=== PATIENT | female | born 1985 | race African-American/Black ===

== ENCOUNTER 2016-07-03 11:11 | Emergency (ER) | payer MEDICAID ==
--- NOTE | 2016-07-03 11:31 | ER Document Report ---
ED Medical Screen (RME) - General Chief Complaint: Knee Pain Stated Complaint: BACK PAIN Time seen by provider: 11:29 Mode of Arrival: Ambulatory Information source: Patient Notes: 31 yo female presents to ed for back and knee pain chronic. knee pain for 2 days worse. TRAVEL OUTSIDE OF THE [place] IN LAST 30 DAYS: No - HPI Onset: Other - 2 days knee Onset/Duration: Gradual Quality of pain: Achy Severity: Severe Pain Level: 5 Associated Symptoms: Other - knee pain left off and on for a year Exacerbated by: Sitting Relieved by: Denies Similar symptoms previously: Yes Recently seen / treated by doctor: No - Related Data Smoking: Cigarettes, Less than 1 pack/day Frequency of alcohol use: None Drug Abuse: None Allergies/Adverse Reactions: iodine Allergy (Verified 04/23/16 16:57) latex Allergy (Verified 04/23/16 16:57) Past Medical History Pulmonary Medical History: Reports: Hx Asthma Past Surgical History: Reports: Hx Section - Immunizations Hx Diphtheria, Pertussis, Tetanus Vaccination: No
[2016-07-03] MEDS ORDERED: KETOROLAC TROMETHAMINE 60 MG/2 ML SDV IM ONE (12:09)
--- NOTE | 2016-07-03 12:13 | ER Document Report ---
ED Extremity Problem, Lower - General Chief Complaint: Knee Pain Stated Complaint: BACK PAIN Time seen by provider: 12:10 Mode of Arrival: Ambulatory Notes: This is a 31-year-old female that presents today with left knee pain for the past 6 days. 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 Denies hearing any pops knee is not locking or giving out. Denies nausea vomiting fever or chills. She describes the pain as ache 10 out of 10 constant. Knee pain has gradually gotten worse over the past day. She has a history of low back pain right sided lumbar area. She states that a year ago she fell while at work. TRAVEL OUTSIDE OF THE [place] IN LAST 30 DAYS: No - Related Data Allergies/Adverse Reactions: iodine Allergy (Verified 04/23/16 16:57) latex Allergy (Verified 04/23/16 16:57) Past Medical History - General Information source: Patient - Social History Smoking Status: Current Every Day Smoker Frequency of alcohol use: None Drug Abuse: None Family History: Reviewed & Not Pertinent Patient has suicidal ideation: No Patient has homicidal ideation: No Pulmonary Medical History: Reports: Hx Asthma Past Surgical History: Reports: Hx Section - Immunizations Hx Diphtheria, Pertussis, Tetanus Vaccination: No Review of Systems - Review of Systems Constitutional: denies: Chills, Fever EENT: No symptoms reported Cardiovascular: denies: Chest pain Respiratory: denies: Cough, Hurts to breathe Gastrointestinal: No symptoms reported Genitourinary: No symptoms reported Female Genitourinary: No symptoms reported Musculoskeletal: See HPI Skin: No symptoms reported Hematologic/Lymphatic: No symptoms reported Neurological/Psychological: No symptoms reported Physical Exam - Vital signs Vitals: Temp Pulse Resp BP Pulse Ox 98.0 F 73 20 150/90 H 100 07/03/16 11:25 07/03/16 11:25 07/03/16 11:25 07/03/16 11:25 07/03/16 11:25 - General General appearance: Appears well, Alert - HEENT Head: Normocephalic, Atraumatic Eyes: Normal Conjunctiva: Normal - Respiratory Respiratory status: No respiratory distress. No: Tachypnea Breath sounds: Normal. No: Rales, Rhonchi, Stridor, Wheezing Chest palpation: Normal - Cardiovascular Rhythm: Regular Heart sounds: Normal auscultation - Abdominal Inspection: Normal Distension: No distension Bowel sounds: Normal Tenderness: Nontender - Extremities General upper extremity: Normal inspection, Nontender, Normal strength, Normal temperature General lower extremity: Normal inspection - Patient is able to flex to 90 and fully extend the left knee. Good range of motion of hip both to gravity and resistance. Dorsalis pedis bilaterally +2., Nontender, Normal strength, Normal temperature - Neurological Cognition: Normal. No: Confused - Psychological Associated symptoms: Normal affect, Normal mood - Skin Skin Temperature: Warm Skin Moisture: Dry Skin Color: Normal Course - Re-evaluation Re-evalutation: 07/03/16 13:40 Patient was offered crutches here in the emergency department. She stated that she heart he has a pair at home and would not like it. Patient was given Jarrett wrap bandage and was offered to wrap her left knee here in the emergency department; however she stated that she didn't want to take off her jeans, and instead would wrap it herself at home. - Vital Signs Vital signs: Temp Pulse Resp BP Pulse Ox 97.8 F 59 L 16 130/87 H 99 07/03/16 13:59 07/03/16 13:59 07/03/16 13:59 07/03/16 13:59 07/03/16 13:59 Discharge - Discharge Clinical Impression: Left knee pain Qualifiers: Chronicity: acute Qualified Code(s): M25.562 - Pain in left knee Condition: Good Disposition: HOME, SELF-CARE Additional Instructions: Return to emergency department if symptoms worsen such as joint swelling, increased redness, or drainage,etc. Follow-up with primary care physician as soon as possible. Follow-up with orthopedist as soon as possible. Jarrett Wrap A compression dressing (jarrett wrap) has been placed. This helps hold the area still. It limits swelling and internal bleeding. The wrap should be comfortably snug -- not tight. You should feel a sense of pressure, but not severe pain under the wrap. Unless the physician tells you otherwise, you can adjust the wrap for comfort. If the wrap causes symptoms suggesting it's too tight -- uncomfortable pressure, swelling or discoloration beyond the wrap, numbness, or severe pain - - you must loosen the wrap. If these symptoms don't resolve promptly, return for re-evaluation. Prescriptions: Acetaminophen 500 mg PO BID #10 tablet Referrals: TRACEY MARIE MD [Primary Care Provider] - Follow up as needed [facility] [Provider Group] - Follow up as needed
[2016-07-03 14:05] VITALS: BP 130/87
== END 2016-07-03 14:03 | disposition home or self-care (01) ==
LOC: ER 11:11
DX: M25.562 Pain in left knee (principal); J45.909 Unspecified asthma, uncomplicated; F17.200 Nicotine dependence, unspecified, uncomplicated; Z91.81 History of falling; Z91.040 Latex allergy status
CPT/HCPCS: 99283; 96372; 73562; J1885

== ENCOUNTER 2016-08-27 12:11 | Emergency (ER) | payer MEDICAID ==
[2016-08-27] MEDS ORDERED: IBUPROFEN 600 MG TABLET PO ONE (12:22)
--- NOTE | 2016-08-27 12:22 | ER Document Report ---
ED Medical Screen (RME) - General Stated Complaint: BACK PAIN Mode of Arrival: Ambulatory Information source: Patient Notes: c/o mid-lower back pain, described as throbbing/aching that has been present for the past year but it worsened 2 days ago. 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 She has tried tylenol, ibuprofen which is not providing relief. no nausea, vomiting, diarrhea, dysuria, bowel/bladder incontinence, paresthesias , weakness I have greeted and performed a rapid initial assessment of this patient. A comprehensive ED assessment and evaluation of the patient, analysis of test results and completion of the medical decision making process will be conducted by additional ED providers. TRAVEL OUTSIDE OF THE [place] IN LAST 30 DAYS: No - Related Data Allergies/Adverse Reactions: iodine Allergy (Verified 08/27/16 12:20) latex Allergy (Verified 08/27/16 12:20) Past Medical History Pulmonary Medical History: Reports: Hx Asthma Past Surgical History: Reports: Hx Section - Immunizations Hx Diphtheria, Pertussis, Tetanus Vaccination: No Physical Exam - Vital signs Vitals: Temp Pulse Resp BP Pulse Ox 98.2 F 63 16 142/86 H 99 08/27/16 12:18 08/27/16 12:18 08/27/16 12:18 08/27/16 12:18 08/27/16 12:18 Course - Vital Signs Vital signs: Temp Pulse Resp BP Pulse Ox 98.2 F 63 16 142/86 H 99 08/27/16 12:18 08/27/16 12:18 08/27/16 12:18 08/27/16 12:18 08/27/16 12:18
--- NOTE | 2016-08-27 13:50 | ER Document Report ---
HPI - HPI Patient complains to provider of: exacerbation of chronic back pain Onset: Other Onset/Duration: Gradual - Wednesday Quality of pain: Achy, Throbbing Pain Level: 5 Context: 31-year-old female with episodic low back pain complaining of another episode of central lumbar back pain since Wednesday. 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 No radiculopathy. No saddle anesthesia. No IV drug use. No fever. Associated Symptoms: None Exacerbated by: Movement Relieved by: Denies Similar symptoms previously: Yes Recently seen / treated by doctor: No - ROS ROS below otherwise negative: Yes Systems Reviewed and Negative: Yes All other systems reviewed and negative - CARDIOVASCULAR Cardiovascular: DENIES: Chest pain - REPRODUCTIVE Reproductive: DENIES: : - DERM Skin Color: Normal Past Medical History - General Information source: Patient - Social History Smoking Status: Current Every Day Smoker Chew tobacco use (# tins/day): No Frequency of alcohol use: None Drug Abuse: None Lives with: Family Family History: Reviewed & Not Pertinent Patient has suicidal ideation: No Patient has homicidal ideation: No Pulmonary Medical History: Reports: Hx Asthma Renal/ Medical History: Denies: Hx Peritoneal Dialysis Past Surgical History: Reports: Hx Section - Immunizations Hx Diphtheria, Pertussis, Tetanus Vaccination: No Vertical Provider Document - CONSTITUTIONAL Agree With Documented VS: Yes - INFECTION CONTROL TRAVEL OUTSIDE OF THE [place] IN LAST 30 DAYS: No - HEENT HEENT: Normocephalic - NECK Neck: Supple - RESPIRATORY Respiratory: Breath Sounds Normal, No Respiratory Distress O2 Sat by Pulse Oximetry: 99 - CARDIOVASCULAR Cardiovascular: Regular Rate, Regular Rhythm - GI/ABDOMEN Gastrointestinal: Abdomen Soft, Abdomen Non-Tender, No Organomegaly - BACK Back: Normal Inspection. negative: CVA Tenderness-Right, CVA Tenderness-Left - MUSCULOSKELETAL/EXTREMETIES Musculoskeletal/Extremeties: MAEW, FROM, Tender - lower lumbar paraspinal muscles - NEURO Level of Consciousness: Awake, Alert Motor/Sensory: No Motor Deficit, No Sensory Deficit Deep Tendon Reflexes: 2+ - Bilateral patellar and ankle - DERM Integumentary: Warm, Dry, No Rash. negative: Rash Course - Vital Signs Vital signs: Temp Pulse Resp BP Pulse Ox 98.2 F 63 16 142/86 H 99 08/27/16 12:18 08/27/16 12:18 08/27/16 12:18 08/27/16 12:18 08/27/16 12:18 Discharge - Discharge Clinical Impression: chronic intermittent lumbar back pain Condition: Good Disposition: HOME, SELF-CARE Instructions: Warm Packs ([facility]), Low Back Pain ([facility]), Muscle Relaxers ([facility]), Muscle Strain ([facility]), Anti-Inflammatory Medication ([facility]) Additional Instructions: warm compress see your doctor for follow up to er if worse Prescriptions: Ibuprofen [Motrin 800 mg Tablet] 800 mg PO Q8HP PRN #30 tab PRN Reason: Cyclobenzaprine HCl [Flexeril 10 Mg Tablet] 10 mg PO TIDP PRN #20 tablet PRN Reason: Forms: Return to Work Referrals: TRACEY MARIE MD [Primary Care Provider] - Follow up as needed
[2016-08-27 14:25] VITALS: BP 135/87
== END 2016-08-27 14:20 | disposition home or self-care (01) ==
LOC: ER 12:11
DX: G89.29 Other chronic pain (principal); M54.5 Low back pain; F17.200 Nicotine dependence, unspecified, uncomplicated; J45.909 Unspecified asthma, uncomplicated
CPT/HCPCS: 99283; J3490

== ENCOUNTER → 2016-11-17 | Outpatient (CLI) | payer MEDICAID ==
--- NOTE | 2016-11-17 10:47 | RADIOLOGY REPORT (SQ) ---
EXAM DESCRIPTION: MRI LUMBAR SPINE WITHOUT COMPLETED DATE/TIME: 11/17/2016 9:07 am REASON FOR STUDY: LOW BACK STRAIN S39.012A STRAIN OF MUSCLE, FASCIA AND TENDON OF LOWER BACK, COMPARISON: None. TECHNIQUE: Sagittal and Axial imaging includes T1, T2, STIR and gradient echo sequences. Coronal T2/ HASTE imaging. LIMITATIONS: None. FINDINGS: VISUALIZED UPPER ABDOMEN: Limited evaluation. No acute or suspicious findings suggested. SEGMENTATION: No transitional anatomy. The lowest well-developed disc space is labeled L5-S1. ALIGNMENT: Anatomic. VERTEBRAE: Intact. BONE MARROW: Normal. No marrow replacement or reactive changes. DISC SIGNAL: Normal. No significant abnormal signal or loss of height. POSTERIOR ELEMENTS: Intact. HARDWARE: None in the spine. CORD AND CONUS: Normal in size and signal intensity. Conus at the appropriate level. SOFT TISSUES: No aortic aneurysm seen. No bulky retroperitoneal adenopathy or mass. No paraspinal mas s or fluid. L1-L2: No significant spinal stenosis or exit foraminal stenosis. L2-L3: No significant spinal stenosis or exit foraminal stenosis. L3-L4: No significant spinal stenosis or exit foraminal stenosis. L4-L5: No significant spinal stenosis or exit foraminal stenosis. L5-S1: No significant spinal stenosis or exit foraminal stenosis. LOWER THORACIC: Incompletely imaged. No stenosis seen. SACRUM: Visualized upper sacrum intact. OTHER: No other significant findings. IMPRESSION: NORMAL MRI LUMBAR SPINE. TECHNICAL DOCUMENTATION: JOB ID: [id number] [employer]- All Rights Reserved
== END ==
LOC: RAD 08:21
PROVIDERS: ATTEND Family Medicine
DX: S39.012A Strain of muscle, fascia and tendon of lower back, initial encounter (principal); X58.XXXA Exposure to other specified factors, initial encounter; Y93.9 Activity, unspecified; Y92.9 Unspecified place or not applicable
CPT/HCPCS: 72148

== ENCOUNTER 2016-12-23 10:28 | Emergency (ER) | payer MEDICAID ==
--- NOTE | 2016-12-23 10:54 | ER Document Report ---
ED Cardiac - General Chief Complaint: Chest Pain Stated Complaint: CHEST PAIN Time Seen by Provider: 12/23/16 10:43 Notes: Patient is a 31-year-old female, past medical history chronic back pain, daily smoker, presents with 4 days of intermittent right lower sternal pain that is worse when she extends her arms. She is currently not in any pain and has not taken anything to help. Denies leg swelling, hemoptysis, shortness of breath, estrogen use, recent surgery, abdominal pain, back pain, nausea, vomiting, radiation of pain or family history of early heart problems. TRAVEL OUTSIDE OF THE [place] IN LAST 30 DAYS: No - Related Data Allergies/Adverse Reactions: iodine Allergy (Verified 12/23/16 10:38) latex Allergy (Verified 12/23/16 10:38) Home Medications: Current Home Medications No Home Medications 12/23/16 [History] Past Medical History - General Information source: Patient - Social History Smoking Status: Current Every Day Smoker Frequency of alcohol use: None Drug Abuse: None Family History: Reviewed & Not Pertinent Patient has suicidal ideation: No Patient has homicidal ideation: No Pulmonary Medical History: Reports: Hx Asthma Renal/ Medical History: Denies: Hx Peritoneal Dialysis Past Surgical History: Reports: Hx Section - Immunizations Hx Diphtheria, Pertussis, Tetanus Vaccination: No Review of Systems - Review of Systems Notes: REVIEW OF SYSTEMS: CONSTITUTIONAL: -fevers, -chills EENT: -eye pain, -difficulty swallowing, -nasal congestion CARDIOVASCULAR: +chest pain, -syncope. RESPIRATORY: -cough, -SOB GASTROINTESTINAL: -abdominal pain, - nausea, -vomiting, -diarrhea GENITOURINARY: -dysuria, -hematuria MUSCULOSKELETAL: -back pain, -neck pain SKIN: -rash or skin lesions. HEMATOLOGIC: -easy bruising or bleeding. LYMPHATIC: -swollen, enlarged glands. NEUROLOGICAL: -altered mental status or loss of consciousness, -headache, - neurologic symptoms PSYCHIATRIC: -anxiety, -depression. ALL OTHER SYSTEMS REVIEWED AND NEGATIVE. Physical Exam - Vital signs Vitals: Temp Pulse Resp BP Pulse Ox 98.3 F 77 23 H 142/91 H 100 12/23/16 10:39 12/23/16 10:39 12/23/16 10:39 12/23/16 10:39 12/23/16 10:39 - Notes Notes: PHYSICAL EXAMINATION: GENERAL: Well-appearing, well-nourished and in no acute distress. HEAD: Atraumatic, normocephalic. EYES: Pupils equal round and reactive to light, extraocular movements intact, sclera anicteric, conjunctiva are normal. ENT: nares patent, oropharynx clear without exudates. Moist mucous membranes. NECK: Normal range of motion, supple without lymphadenopathy LUNGS: Breath sounds clear to auscultation bilaterally and equal. No wheezes rales or rhonchi. HEART: Regular rate and rhythm without murmurs. Mild tenderness over lower sternum. ABDOMEN: Soft, nontender, normoactive bowel sounds. No guarding, no rebound. No masses appreciated. EXTREMITIES: Normal range of motion, no pitting or edema. No cyanosis. NEUROLOGICAL: Cranial nerves grossly intact. Normal speech, normal gait. Normal sensory and motor exams. PSYCH: Normal mood, normal affect. SKIN: Warm, Dry, normal turgor, no rashes or lesions noted. Course - Re-evaluation Re-evalutation: Patient's EKG and CXR does not show any concerning abnormalities. Her HEART score is 1 and she is PERC negative. With the reproducible chest wall pain, will treat her with NSAIDs and f/u at her PMD. - Vital Signs Vital signs: Temp Pulse Resp BP Pulse Ox 98.3 F 77 18 142/91 H 100 12/23/16 10:39 12/23/16 10:39 12/23/16 10:40 12/23/16 10:39 12/23/16 10:39 - Diagnostic Test Radiology reviewed: Image reviewed, Reports reviewed Radiology results interpreted by me: CXR: NAD - EKG Interpretation by Me EKG shows normal: Sinus rhythm, [place], Intervals, QRS Complexes, ST-T Waves Rate: Normal When compared to previous EKG there are: No significant change Discharge - Discharge Clinical Impression: Chest pain Qualifiers: Chest pain type: unspecified Qualified Code(s): R07.9 - Chest pain, unspecified Condition: Good Disposition: HOME, SELF-CARE Additional Instructions: CHEST PAIN OF UNCLEAR CAUSE: The exact cause of your chest pain isn't clear. Fortunately, there is no evidence of a dangerous medical condition. Further testing may be required to find the source of the pain. Most often, we find that this pain is coming from the chest wall -- the muscles or rib joints in the chest. But chest pain can come from the lung and lung lining, the esophagus, the heart valves or heart lining, and even the stomach or gallbladder. Rest. Eat lightly until the pain is gone. We may prescribe medicine for pain and inflammation. You should call the physician immediately if the pain radiates to the shoulder, jaw or arms; if you start to run a fever or develop a cough; or if you develop shortness of breath, or other new or alarming symptoms. NORMAL EXAM AND WORKUP: At this time, your examination and workup show no significant abnormality. No significant abnormal physical findings were noted. All laboratory, EKG, and imaging (x-ray, CT scans, ultrasound) studies that were ordered show no significant abnormality. Although your examination and all studies that were ordered showed no significant abnormal finding, there are no examinations and no studies that are 100% accurate. There is always the possibility that some abnormality could exist and not be detected with physical examination or within the limits and capabilities of laboratory and other studies. You should return or follow up as you were instructed on your visit today for further evaluation if your symptoms do not resolve. CHEST WALL PAIN: Your chest pain may be coming from the chest wall. This is often caused by straining the muscles or joints in the chest during physical activity, direct trauma, coughing, or vigorous vomiting. Persons with arthritis are especially prone to this type of pain, due to inflammation of the cartilage joints near the breast bone. Occasionally, no cause can be found. Rest from strenuous physical activity. This kind of chest pain is usually made worse by movement of the chest. Depending on the symptoms, we may prescribe medicine for pain, muscle relaxation, and antiinflammatory effects. If the pain is new, and seems to be due to muscle strain, cold packs can help. Otherwise, apply gentle warmth to the painful area for 15 minutes every hour or two. You should call contact the doctor immediately if things change. Further evaluation is needed if you develop a fever or cough, if the nature of the pain changes, or if you become short of breath. ACID REFLUX DISEASE (GERD): Gastro-Esophageal Reflux Disease (GERD) is caused by stomach acid refluxing back up into the esophagus. The valve at the end of the esophagus may be weak. This is common in persons with a hiatal hernia. GERD symptoms can include indigestion, chest pain, heartburn, or food "sticking." Certain foods, alcohol, and aspirin can make GERD worse. Treatment depends on the severity. Usually, antacids or acid-suppressing medicines are used. When the esophagus is acutely inflamed, the physician will often prescribe membrane-protective drugs such as Carafate. Some patients benefit from medication such as Reglan that tightens the valve at the top of the stomach. Avoid those foods that bring on your symptoms. For many people, these foods are coffee, chocolate, onions, garlic, and carbonated drinks. Don't use alcohol, aspirin, caffeine, or tobacco. Don't eat late at night -- within 4 hours of bedtime. Don't over-eat. If necessary, elevate the head of your bed about 4 inches so that stomach acid will not roll up into your esophagus. Call the doctor if you develop severe chest pain, inability to swallow fluids, fever, or worsening symptoms. FOLLOW-UP CARE: If you have been referred to a physician for follow-up care, call the physician s office for an appointment as you were instructed or within the next two days. If you experience worsening or a significant change in your symptoms, notify the physician immediately or return to the Emergency Department at any time for re-evaluation. Forms: Smoking Cessation Education, Elevated Blood Pressure Referrals: RICARDO ALAN MD [ACTIVE STAFF] - Follow up as needed
--- NOTE | 2016-12-23 11:05 | RADIOLOGY REPORT (SQ) ---
EXAM DESCRIPTION: CHEST PA/LAT COMPLETED DATE/TIME: 12/23/2016 10:58 am REASON FOR STUDY: chest pain COMPARISON: 05/23/2014 EXAM PARAMETERS: NUMBER OF VIEWS: two views TECHNIQUE: Digital Frontal and Lateral radiographic views of the chest acquired. RADIATION DOSE: NA LIMITATIONS: none FINDINGS: LUNGS AND PLEURA: No opacities, masses or pneumothorax. No pleural effusion. MEDIASTINUM AND HILAR STRUCTURES: No masses or contour abnormalities. HEART AND VASCULAR STRUCTURES: Heart normal size. No evidence for failure. BONES: No acute findings. HARDWARE: None in the chest. OTHER: No other significant finding. IMPRESSION: NO SIGNIFICANT RADIOGRAPHIC FINDING IN THE CHEST. TECHNICAL DOCUMENTATION: JOB ID: [id number] [employer]- All Rights Reserved
[2016-12-23 11:31] VITALS: BP 131/75
--- NOTE | 2016-12-23 21:22 | EKG REPORT ---
SEVERITY:- OTHERWISE NORMAL ECG - SINUS ARRHYTHMIA, RATE 64-87 : Confirmed by: Suzy Xie 23-Dec-2016 21:21:53
== END 2016-12-23 11:35 | disposition home or self-care (01) ==
LOC: ER 10:28
DX: R07.9 Chest pain, unspecified (principal); M54.9 Dorsalgia, unspecified; G89.29 Other chronic pain; F17.200 Nicotine dependence, unspecified, uncomplicated
CPT/HCPCS: 71020; 93005; 93010; 99285

== ENCOUNTER 2017-07-05 15:25 | Emergency (ER) | payer MEDICAID ==
[2017-07-05 15:31] VITALS: BP 154/81
[2017-07-05] MEDS ORDERED: KETOROLAC TROMETHAMINE 60 MG/2 ML SDV IM ONE (17:26)
[2017-07-05] MEDS ORDERED: DEXAMETHASONE SOD PHOS INJ 10 MG/1 ML VIAL IM ONE (17:26)
--- NOTE | 2017-07-05 18:09 | RADIOLOGY REPORT (SQ) ---
EXAM DESCRIPTION: L SPINE WHOLE COMPLETED DATE/TIME: 07/05/2017 5:56 pm REASON FOR STUDY: low back pain radiating down right leg COMPARISON: 11/14/2015. NUMBER OF VIEWS: Five views including obliques. TECHNIQUE: AP, lateral, oblique, and sacral radiographic images acquired of the lumbar spine. LIMITATIONS: None. FINDINGS: MINERALIZATION: Normal. SEGMENTATION: Normal. No transitional anatomy. ALIGNMENT: Normal. VERTEBRAE: Maintained height. No fracture or worrisome bone lesion. DISCS: Preserved height. No significant osteophytes or end plate irregularity. POSTERIOR ELEMENTS: Pedicles and facets are intact. No pars defect or posterior arch defects. HARDWARE: None in the spine. PARASPINAL SOFT TISSUES: Normal. PELVIS: Intact as visualized. No fractures or worrisome bone lesions. SI joints intact. OTHER: No other significant finding. IMPRESSION: NORMAL 5 VIEW LUMBAR SPINE. TECHNICAL DOCUMENTATION: JOB ID: [id number] [employer]- All Rights Reserved
--- NOTE | 2017-07-05 18:36 | ER Document Report ---
ED Neck/Back Problem - General Chief Complaint: Back Pain Stated Complaint: BACK PAIN Time Seen by Provider: 07/05/17 16:39 Mode of Arrival: Ambulatory Information source: Patient Notes: 32-year-old female presents to ED for complaint of back pain. She states she has a history of chronic back pain for about 2 years. She states the pain increased on Wednesday and now is radiating down her right leg. States it is never radiated down this far down her leg before. TRAVEL OUTSIDE OF THE [place] IN LAST 30 DAYS: No - HPI Patient complains to provider of: Lower back Onset: Other - Chronic with new radiation down her leg Onset: Chronic Timing: Still present, Worse Quality of pain: Sharp, Throbbing Severity: Severe Pain Level: 5 Context: Other Recent injury: No Associated symptoms: Like prior neck/back pain, Radiation to leg, Lower back pain. denies: Constipation, Fever, Incontinence, Motor loss, Numbness/tingling , Radiation to arm, Radiation to chest, Sensory loss, Sweaty, Unable to urinate , Upper back pain Exacerbated by: Movement of trunk, Sitting position Relieved by: Nothing Similar symptoms previously: Yes Recently seen / treated by doctor: No - Related Data Allergies/Adverse Reactions: iodine Allergy (Verified 07/05/17 15:27) latex Allergy (Verified 07/05/17 15:27) Past Medical History - Social History Smoking Status: Current Every Day Smoker Cigarette use (# per day): Yes - Half pack a day Chew tobacco use (# tins/day): No Smoking Education Provided: Yes - 4 minutes Frequency of alcohol use: Occasional Drug Abuse: None Occupation: None Lives with: Family Family History: Arthritis, CAD, COPD, CVA, Hyperlipidemia, Hypertension, Malignancy. denies: Thyroid Disfunction Patient has suicidal ideation: No Patient has homicidal ideation: No - Past Medical History Cardiac Medical History: Reports: None Pulmonary Medical History: Reports: Hx Asthma EENT Medical History: Reports: None Neurological Medical History: Reports: None Endocrine Medical History: Reports: None Renal/ Medical History: Reports: None Malignancy Medical History: Reports: None GI Medical History: Reports: None Musculoskeltal Medical History: Reports Hx Arthritis, Reports Hx Musculoskeletal Deformity Skin Medical History: Reports None Psychiatric Medical History: Reports: None Traumatic Medical History: Reports: None Infectious Medical History: Reports: None Past Surgical History: Reports: Hx Tubal Ligation - Immunizations Hx Diphtheria, Pertussis, Tetanus Vaccination: No Review of Systems - Review of Systems Constitutional: No symptoms reported EENT: No symptoms reported Cardiovascular: No symptoms reported Respiratory: No symptoms reported Gastrointestinal: No symptoms reported Genitourinary: No symptoms reported Female Genitourinary: No symptoms reported Musculoskeletal: Back pain, Other - Patient denies any loss of control of bowel or bladder, loss of control of lower extremities, any loss of sensation to the lower extremities, or any saddle anesthesia. Patient does not have any signs or symptoms of cauda equina. Skin: No symptoms reported Hematologic/Lymphatic: No symptoms reported Neurological/Psychological: No symptoms reported -: Yes All other systems reviewed and negative Physical Exam - Vital signs Vitals: Temp Pulse Resp BP Pulse Ox 98.6 F 88 18 154/81 H 100 07/05/17 15:30 07/05/17 15:30 07/05/17 15:30 07/05/17 15:30 07/05/17 15:30 Interpretation: Normal - General General appearance: Appears well, Alert - HEENT Head: Normocephalic, Atraumatic Eyes: Normal Pupils: PERRL - Respiratory Respiratory status: No respiratory distress Chest status: Nontender Breath sounds: Normal Chest palpation: Normal - Cardiovascular Rhythm: Regular Heart sounds: Normal auscultation Murmur: No - Abdominal Inspection: Normal Distension: No distension Bowel sounds: Normal Tenderness: Nontender Organomegaly: No organomegaly - Back Back: Normal, Tender, Vertebra tenderness. No: Deformity/step-off, CVA tenderness, Scars, Scoliosis, Wounds - Extremities General upper extremity: Normal inspection, Nontender, Normal color, Normal ROM , Normal temperature General lower extremity: Normal inspection, Nontender, Normal color, Normal ROM , Normal temperature, Normal weight bearing. No: Arnoldo's sign - Neurological Neuro grossly intact: Yes Cognition: Normal Orientation: AAOx4 [place] Coma Scale Eye Opening: Spontaneous [place] Coma Scale Verbal: Oriented [place] Coma Scale Motor: Obeys Commands [place] Coma Scale Total: 15 Speech: Normal Motor strength normal: LUE, RUE, LLE, RLE Sensory: Normal - Psychological Associated symptoms: Normal affect, Normal mood - Skin Skin Temperature: Warm Skin Moisture: Dry Skin Color: Normal Course - Re-evaluation Re-evalutation: 07/05/17 20:26 Patient is able to walk with a steady even gait. She does complain of pain when getting up and down or bending her legs. Patient does not have any signs or symptoms of cauda equina as noted in her assessment. X-rays are negative for any acute changes. Will discharge patient home. Patient was treated with Toradol and Decadron. Patient was instructed to follow-up with primary doctor and with back specialist. - Vital Signs Vital signs: Temp Pulse Resp BP Pulse Ox 98.6 F 88 18 154/81 H 100 07/05/17 15:30 07/05/17 15:30 07/05/17 15:30 07/05/17 15:30 07/05/17 15:30 Discharge - Discharge Clinical Impression: Low back pain Qualifiers: Chronicity: chronic Back pain laterality: bilateral Sciatica presence: with sciatica Sciatica laterality: sciatica of right side Qualified Code(s): M54.41 - Lumbago with sciatica, right side HTN (hypertension) Qualifiers: Hypertension type: unspecified Qualified Code(s): I10 - Essential (primary) hypertension Condition: Stable Disposition: HOME, SELF-CARE Instructions: Family Physicians / Practices Additional Instructions: LOW BACK PAIN: Three out of every four people will have an episode of disabling back pain during their lifetime. Most commonly the pain is due to straining of the muscles and ligaments in the low back. Usual treatment includes: (1) Rest on a firm surface. Avoid lying on your stomach. (2) Ice pack the painful area. After a few days, gentle heat may be used intermittently to relax the area, or ice packs can be continued. (3) Medication may be needed -- muscle relaxers and antiinflammatory medicines are commonly used. (4) As the back improves, exercises are prescribed to strengthen the back and abdominal muscles. Your doctor will advise you on the proper care for your back at each stage in your recovery. You may be better in a few days -- or healing may take several weeks. If new symptoms of a "herniated disc" (radiation of pain, numbness, or tingling down the back of the leg or weakness in the leg) occur, you should be re-examined. Further testing may be necessary. Chronic Pain Control Stress, inactivity, and depression make pain more severe regardless of the cause of the pain. Stress and poor physical condition can cause pain such as headaches and backache. Relaxation: Rest in a quiet place with your eyes closed for 20 minutes twice daily. Concentrate on a pleasant image, or simply "feel" your breathing. Clear your mind. Stress management: Deal with your "stressors." Either take action, or eliminate the stressor from your life. Don't let things hang over you. Accept those things you can't change. Nutrition: Eat small, balanced meals -- don't skip, don't overeat. Meals should be high-carbohydrate, low-sugar, low-fat. Exercise: Exercise helps painful conditions and eases stress. Get 30 minutes of moderate exercise, five days a week. Do an activity that does not flare your pain. Precautions: Pain which continues to disrupt daily activities, or which changes in nature, requires a medical evaluation. Pain Clinic referral is available. We do not manage chronic pain in the Emergency Department. We will try to appropriately help you through an acute flare of your chronic painful condition , but for on-going chronic pain that does not improve, you will need to see your private doctor or mobile paint specialist. We do not provide repeated medication management of chronic painful conditions. If you wish, we can provide the name of local pain management physicians. Stretching Exercises for the Back The physician has recommended that you begin stretching exercises for your back. These are often used even while the back is painful. However, you should notify the physician if the activities seem to increase your pain. PELVIC TILT: Lie flat on your back with knees bent. Tighten your stomach and buttock muscles so it flattens your lower back against the floor. Hold 10 seconds. Repeat 10 times, twice daily. KNEE RAISE: Lying on the back with knees bent, raise one knee to your chest, then the other. Hold both knees against the chest 10 seconds, then lower one knee at a time. Repeat 10 times, twice daily. PARTIAL TRUNK RAISE: Lie face down, arms at your sides. Keeping your waist on the floor, use your arms raise your chest up. Support yourself on your elbows for 30 seconds. Repeat twice daily, increasing the time to two minutes as you recover. STEROID MEDICATION: You have been given an injection of medicine of the cortisone/steroid class. This medication is used to control inflammation or allergy. It is often continued as a pill for a short period of time, until the acute process subsides. There are usually no side effects from short-term use of cortisone-like medications. Some persons feel an increased sense of well-being and are not sleepy at bedtime. Long-term use of cortisone medications is best avoided, unless required for a severe condition. If your condition does not remit, or relapses after the course of corticosteroid medication, you should consult your physician. Toradol Injection You have been given an injection of ketorolac tromethamine (Toradol). This is an excellent, safe drug for pain control. It also has potent antiinflammatory action. You should have significant pain relief within about one hour. Toradol is not addicting and is non-sedating. It does not interfere with driving or work. Call or return if you develop itching, hives, shortness of breath, or rash. MUSCLE RELAXERS: Muscle relaxing medications are usually prescribed for acute muscle spasm or injury to the neck and back. They are often combined with antiinflammatory pain medication for increased relief. You may stop the muscle relaxer when the pain and stiffness have improved. Start the medication again if spasms recur. Muscle relaxers may cause drowsiness, especially with the first dose. Do not operate machinery or drive while under the effects of the medication. Most muscle relaxers last up to 24 hours. Do not combine the medication with alcohol. ICE PACKS: Apply ice packs frequently against the painful area. Many different schedules are recommended, such as "20 minutes on, 20 minutes off" or "one hour ice, two hours rest." If you need to work, you may need to go longer between ice treatments. You should plan to have the area ice packed AT LEAST one fourth of the time. The ice should be applied over the wrap, tape, or splint, or over a layer of cloth -- not directly against the skin. Some ice bags have a built-in cloth and can be put directly on the skin. WARM PACKS: After approximately two days, apply gentle heat (such as a heating pad or hot water bottle) for about 20 to 30 minutes about every two hours -- at least four times daily. Warmth and elevation will help you make a more rapid recovery , and will ease the pain considerably. Do not use HOT heat, and never apply heat for longer than 30 minutes. The continuous heat can invisibly damage skin and muscles -- even when no burn is seen on the surface. Damaged muscles can make you MORE sore. FOLLOW-UP CARE: If you have been referred to a physician for follow-up care, call the physician s office for an appointment as you were instructed or within the next two days. If you experience worsening or a significant change in your symptoms, notify the physician immediately or return to the Emergency Department at any time for re-evaluation. Prescriptions: Ibuprofen 600 mg PO Q8HP PRN #14 tablet PRN Reason: Cyclobenzaprine HCl [Flexeril 10 mg Tablet] 10 mg PO TIDP PRN #15 tab PRN Reason: Lidocaine [Lidoderm 5% (700 mg) Transdermal Patch] 1 patch TP DAILY #20 adh..patch Forms: Elevated Blood Pressure, Smoking Cessation Education Referrals: LIZZY MEDRANO MD [ASSOCIATE] - Follow up as needed
== END 2017-07-05 19:21 | disposition home or self-care (01) ==
LOC: ER 15:25
DX: M54.41 Lumbago with sciatica, right side (principal); I10 Essential (primary) hypertension; F17.210 Nicotine dependence, cigarettes, uncomplicated; Z98.51 Tubal ligation status; Z91.040 Latex allergy status
CPT/HCPCS: 99406; 99283; 96372; 72110; J1885; J1100

== ENCOUNTER 2019-03-13 18:52 | Observation (INO) | payer MEDICAID ==
[2019-03-13] MEDS ORDERED: ASPIRIN 81 MG TABLET, CHEWABLE PO ONE (19:47)
--- NOTE | 2019-03-13 19:51 | ER Document Report ---
ED Medical Screen (RME) - General Chief Complaint: General Weakness Stated Complaint: WEAKNESS/COUGHING Time Seen by Provider: 03/13/19 19:42 Notes: Patient is an otherwise healthy 34-year-old female presenting with multiple symptoms today. Patient reports intermittent chest pain over the last 3 days with cough, congestion and generalized fatigue. She states she just does not feel herself. She denies any radiation of the pain. Exam: Lung sounds clear and equal bilaterally. Heart sounds S1-S2 no noted with no ectopy, normal rate, normal rhythm. Patient has a new left bundle branch block on her EKG in comparison with previous EKG from 2 years ago. I have greeted and performed a rapid initial assessment of this patient. A comprehensive ED assessment and evaluation of the patient, analysis of test results and completion of the medical decision making process will be conducted by additional ED providers. I have specifically instructed the patient or family members with the patient to immediately return to any nursing staff should anything change in the patient's condition or with their chief complaint. This medical record was dictated with voice recognizing software. There may be grammatical, syntax errors that are unintended. TRAVEL OUTSIDE OF THE [place] IN LAST 30 DAYS: No - Related Data Allergies/Adverse Reactions: iodine Allergy (Verified 07/05/17 15:27) latex Allergy (Verified 07/05/17 15:27) Past Medical History - Social History Chew tobacco use (# tins/day): No Frequency of alcohol use: Occasional Drug Abuse: Marijuana Pulmonary Medical History: Reports: Hx Asthma Renal/ Medical History: Denies: Hx Peritoneal Dialysis Musculoskeltal Medical History: Reports Hx Arthritis, Reports Hx Musculoskeletal Deformity Past Surgical History: Reports: Hx Section, Hx Tubal Ligation - Immunizations Hx Diphtheria, Pertussis, Tetanus Vaccination: No Physical Exam - Vital signs Vitals: Temp Pulse Resp BP Pulse Ox 99.5 F 106 H 18 142/81 H 100 03/13/19 19:07 03/13/19 19:07 03/13/19 19:07 03/13/19 19:07 03/13/19 19:07 Course - Vital Signs Vital signs: Temp Pulse Resp BP Pulse Ox 99.5 F 106 H 18 142/81 H 100 03/13/19 19:07 03/13/19 19:07 03/13/19 19:07 03/13/19 19:07 03/13/19 19:07
[2019-03-13] MEDS ORDERED: NORMAL SALINE 1000 ML 1,000 ML IV ONE (20:12)
[2019-03-13 20:27] LABS: ABSOLUTE EOSINOPHILS # (AUTO) 0.2 10^3/uL (0.0-0.6); ABSOLUTE LYMPHOCYTES (AUTO) 1.7 10^3/uL (0.5-4.7); ABSOLUTE MONOCYTES (AUTO) 1.2 10^3/uL (0.1-1.4); ABSOLUTE NEUT (AUTO) 12.5 10^3/uL (1.7-8.2); BASOPHILS % (AUTO) 0.3 % (0-2); EOSINOPHILS % (AUTO) 1.1 % (0-6); HEMATOCRIT 37.4 % (36.0-47.0); HEMOGLOBIN 12.4 g/dL (12.0-15.5); MEAN CORPUSCULAR HEMOGLOBIN 29.2 pg (27.0-33.4); MEAN CORPUSCULAR HGB CONC 33.3 g/dL (32.0-36.0); MEAN CORPUSCULAR VOLUME 88 fl (80-97); MONOCYTES % (AUTO) 7.4 % (3-13); PLATELET COUNT 332 10^3/uL (150-450); RED BLOOD COUNT 4.26 10^6/uL (3.72-5.28); RED CELL DISTRIBUTION WIDTH 13.8 % (11.5-14.0); SEGMENTED NEUTROPHILS % (AUTO) 80.2 % (42-78); TOTAL CELLS COUNTED % (AUTO) 100 %; WHITE BLOOD COUNT 15.6 10^3/uL (4.0-10.5)
[2019-03-13 20:41] LABS: INTERNATIONAL RATION (INR) 1.08; PARTIAL THROMBOPLASTIN TIME 30.8 SEC (23.5-35.8); PROTHROMBIN TIME 14.1 SEC (11.4-15.4)
--- NOTE | 2019-03-13 21:00 | RADIOLOGY REPORT (SQ) ---
XR CHEST 1 VIEW CLINICAL STATEMENT: chest pain COMPARISON: 12/23/2016 FINDINGS: Cardiomediastinal silhouette is within normal limits. Right lower lobe patchy airspace disease consistent with pneumonia. No pneumothorax. No significant pleural effusions. IMPRESSION: Patchy right lower lobe pneumonia.
[2019-03-13 21:12] LABS: CREATINE KINASE MB < 0.22 ng/mL (<4.55); TROPONIN I < 0.012 ng/mL
[2019-03-13 21:12] LABS: VENOUS BLOOD BASE EXCESS -0.4 mmol/L; VENOUS BLOOD HCO3 25.1 mmol/L (20-32); VENOUS BLOOD PCO2 44.2 mmHg (35-63); VENOUS BLOOD PH 7.37 (7.30-7.42)
[2019-03-13 22:28] LABS: APPEARANCE,URINE CLEAR; BILIRUBIN,URINE NEGATIVE (NEGATIVE); COLOR,URINE YELLOW; GLUCOSE, URINE NEGATIVE (NEGATIVE); KETONES,URINE NEGATIVE (NEGATIVE); PROTEIN,URINE NEGATIVE (NEGATIVE); URINE SPECIFIC GRAVITY 1.017
[2019-03-13 22:29] LABS: LEUKOCYTE ESTERASE,URINE TRACE (NEGATIVE); NITRITE,URINE NEGATIVE (NEGATIVE)
[2019-03-13 22:32] LABS: ALKALINE PHOSPHATASE 63 U/L (38-126); ANION GAP 8 (5-19); ASPARTATE AMINO TRANSFERASE 14 U/L (14-36); BILIRUBIN,DIRECT 0.1 mg/dL (0.0-0.4); BILIRUBIN,TOTAL 0.2 mg/dL (0.2-1.3); BLOOD UREA NITROGEN 10 mg/dL (7-20); CALCIUM 8.6 mg/dL (8.4-10.2); CARBON DIOXIDE 24 mmol/L (22-30); CHLORIDE 105 mmol/L (98-107); CREATINE KINASE 59 U/L (30-135); GLUCOSE 89 mg/dL (75-110); POTASSIUM 4.1 mmol/L (3.6-5.0); TOTAL PROTEIN 6.9 g/dL (6.3-8.2)
[2019-03-13] MEDS ORDERED: CEFTRIAXONE 2 GM/D5W RTU 2 GM/50 ML RTUPB IV ONE (23:32)
[2019-03-13] MEDS ORDERED: AZITHROMYCIN 250 MG TABLET PO ONE (23:32)
--- NOTE | 2019-03-14 00:27 | RADIOLOGY REPORT (SQ) ---
EXAM DESCRIPTION: CT CHEST ANGIOGRAPHY WITHOUT THEN WITH IV CONTRAST COMPLETED DATE/TME: 03/13/2019 23:31 CLINICAL HISTORY: 34 years, Female, cough/sob COMPARISON: None. TECHNIQUE: Axial images through the chest were performed after the administration of intravenous contrast using a pulmonary embolus protocol. MIPS were performed. This exam was performed according to our departmental dose-optimization program which includes use of Automated Exposure Control, adjustment of the mA and/or kV according to patient size and/or use of iterative reconstruction technique. FINDINGS: No pulmonary embolus is identified. Normal caliber aorta without dissection. No pericardial effusion. No pleural effusion. Dense consolidation in the right lower lobe. The lungs are otherwise clear. No pneumothorax. Patent central airway. Soft tissues are unremarkable. No acute osseous findings. No acute abnormality within the visualized upper abdomen. IMPRESSION: No pulmonary embolus. Right lower lobe pneumonia
[2019-03-14] MEDS ORDERED: IPRATROPIUM/ALBUTEROL 0.5-2.5 MG/3 ML AMPUL NEB PRN (00:42)
[2019-03-14] MEDS ORDERED: ACETAMINOPHEN 325 MG TABLET PO PRN (00:42)
[2019-03-14] MEDS ORDERED: NORMAL SALINE 1000 ML 1,000 ML IV ONE (00:44)
--- NOTE | 2019-03-14 00:45 | ER Document Report ---
ED General - General Chief Complaint: General Weakness Stated Complaint: WEAKNESS/COUGHING Time Seen by Provider: 03/13/19 19:42 Mode of Arrival: Ambulatory Information source: Patient TRAVEL OUTSIDE OF THE [place] IN LAST 30 DAYS: No - HPI Notes: Patient presents complaining of fever weakness malaise and shortness of breath. She also states she has a chronic dry cough. She states all the symptoms have been getting worse over the last week. She also states she has been having some intermittent chest pain. She states the chest pain was the worst about 1 week ago. She states currently she has no chest pain. She states that the symptoms are worse when she exerts herself and better with rest. There is no significant radiation of the symptoms. The symptoms have been moderate to severe in intensity. She denies any rashes. No previous history of similar symptoms. She denies any chronic medical problems. - Related Data Allergies/Adverse Reactions: latex Allergy (Verified 07/05/17 15:27) shellfish derived Allergy (Verified 03/13/19 23:52) Past Medical History - General Information source: Patient - Social History Smoking Status: Current Every Day Smoker Chew tobacco use (# tins/day): No Frequency of alcohol use: Occasional Drug Abuse: Marijuana Family History: Arthritis, CAD, COPD, CVA, Hyperlipidemia, Hypertension, Malignancy. denies: Thyroid Disfunction Patient has suicidal ideation: No Patient has homicidal ideation: No Pulmonary Medical History: Reports: Hx Asthma Renal/ Medical History: Denies: Hx Peritoneal Dialysis Musculoskeletal Medical History: Reports Hx Arthritis, Reports Hx Musculoskeletal Deformity Past Surgical History: Reports: Hx Section, Hx Tubal Ligation - Immunizations Hx Diphtheria, Pertussis, Tetanus Vaccination: No Review of Systems - Review of Systems Constitutional: Chills, Fever, Malaise, Weakness Cardiovascular: Chest pain, Palpitations Respiratory: Cough, Short of breath Gastrointestinal: denies: Nausea, Constipation -: Yes All other systems reviewed and negative Physical Exam - Vital signs Vitals: Temp Pulse Resp BP Pulse Ox 99.5 F 106 H 18 142/81 H 100 03/13/19 19:07 03/13/19 19:07 03/13/19 19:07 03/13/19 19:07 03/13/19 19:07 Interpretation: Hypertensive, Tachycardic, Febrile - General General appearance: Alert In distress: None - HEENT Head: Normocephalic, Atraumatic Eyes: Normal Pupils: PERRL - Respiratory Respiratory status: No respiratory distress Chest status: Nontender Breath sounds: Rhonchi Chest palpation: Normal - Cardiovascular Rhythm: Tachycardia Heart sounds: Normal auscultation Murmur: No - Abdominal Inspection: Normal Distension: No distension Bowel sounds: Normal Tenderness: Nontender Organomegaly: No organomegaly - Back Back: Normal, Nontender - Extremities General upper extremity: Normal inspection, Nontender, Normal color, Normal ROM, Normal temperature General lower extremity: Normal inspection, Nontender, Normal color, Normal ROM, Normal temperature, Normal weight bearing. No: Arnoldo's sign - Neurological Neuro grossly intact: Yes Cognition: Normal Orientation: AAOx4 Stan Coma Scale Eye Opening: Spontaneous Stan Coma Scale Verbal: Oriented [place] Coma Scale Motor: Obeys Commands [place] Coma Scale Total: 15 Speech: Normal Motor strength normal: LUE, RUE, LLE, RLE Sensory: Normal - Psychological Associated symptoms: Normal affect, Normal mood - Skin Skin Temperature: Warm Skin Moisture: Dry Skin Color: Normal Course - Re-evaluation Re-evalutation: 03/14/19 00:44 Patient reassessed just now. She is no longer tachycardic. Saturations are n ormal. She is not tachypneic. Work-up is remarkable for a right lower lobe pneumonia. Patient does also have an apparent new left bundle branch block. 2 troponins are negative. Patient was discussed with the hospitalist patient be accepted for admission on telemetry. - Vital Signs Vital signs: Temp Pulse Resp BP Pulse Ox 100.4 F 106 H 21 H 134/76 H 100 03/13/19 20:23 03/13/19 19:07 03/13/19 23:00 03/13/19 22:48 03/13/19 23:00 - Laboratory Result Diagrams: 03/13/19 20:15 03/13/19 22:00 Laboratory results interpreted by me: 03/13/19 03/13/19 20:15 22:08 WBC 15.6 H Lymph % (Auto) 11.0 L Absolute Neuts (auto) 12.5 H Seg Neutrophils % 80.2 H Urine Urobilinogen 2.0 H Ur Leukocyte Esterase TRACE H 03/14/19 00:45 Laboratory 03/13/19 03/13/19 03/13/19 20:09 20:15 20:15 WBC 15.6 H RBC 4.26 Hgb 12.4 Hct 37.4 MCV 88 MCH 29.2 MCHC 33.3 RDW 13.8 Plt Count 332 Lymph % (Auto) 11.0 L [place] % (Auto) 7.4 Eos % (Auto) 1.1 Baso % (Auto) 0.3 Absolute Neuts (auto) 12.5 H Absolute Lymphs (auto) 1.7 Absolute Monos (auto) 1.2 Absolute Eos (auto) 0.2 Absolute Basos (auto) 0.0 Seg Neutrophils % 80.2 H PT INR APTT VBG pH VBG pCO2 VBG HCO3 VBG Base Excess Sodium Cancelled Potassium Cancelled Chloride Cancelled Carbon Dioxide Cancelled Anion Gap Cancelled BUN Cancelled Creatinine Cancelled Est GFR ( Amer) Cancelled Est GFR (Non-Af Amer) Cancelled Est GFR (MDRD) Non-Af Cancelled Glucose Cancelled POC Glucose 87 Lactic Acid Calcium Cancelled Total Bilirubin Cancelled Direct Bilirubin Cancelled Neonat Total Bilirubin Cancelled Neonat Direct Bilirubin Cancelled Neonat Indirect Bili Cancelled AST Cancelled ALT Cancelled Alkaline Phosphatase Cancelled Creatine Kinase Cancelled CK-MB (CK-2) Troponin I NT-Pro-B Natriuret Pep Total Protein Cancelled Albumin Cancelled EGFR Cancelled Serum HCG, Qual Urine Color Urine Appearance Urine pH Ur Specific [place] Urine Protein Urine Glucose (UA) Urine Ketones Urine Blood Urine Nitrite Urine Bilirubin Urine Urobilinogen Ur Leukocyte Esterase Urine WBC (Auto) Urine RBC (Auto) Squamous Epi Cells Auto Urine Mucus (Auto) Urine Ascorbic Acid 03/13/19 03/13/19 03/13/19 20:15 20:15 20:15 WBC RBC Hgb Hct MCV MCH MCHC RDW Plt Count Lymph % (Auto) [place] % (Auto) Eos % (Auto) Baso % (Auto) Absolute Neuts (auto) Absolute Lymphs (auto) Absolute Monos (auto) Absolute Eos (auto) Absolute Basos (auto) Seg Neutrophils % PT 14.1 INR 1.08 APTT 30.8 VBG pH VBG pCO2 VBG HCO3 VBG Base Excess Sodium Potassium Chloride Carbon Dioxide Anion Gap BUN Creatinine Est GFR ( Amer) Est GFR (Non-Af Amer) Est GFR (MDRD) Non-Af Glucose POC Glucose Lactic Acid Calcium Total Bilirubin Direct Bilirubin Neonat Total Bilirubin Neonat Direct Bilirubin Neonat Indirect Bili AST ALT Alkaline Phosphatase Creatine Kinase CK-MB (CK-2) < 0.22 Troponin I < 0.012 NT-Pro-B Natriuret Pep Total Protein Albumin EGFR Serum HCG, Qual NEGATIVE Urine Color Urine Appearance Urine pH Ur Specific [place] Urine Protein Urine Glucose (UA) Urine Ketones Urine Blood Urine Nitrite Urine Bilirubin Urine Urobilinogen Ur Leukocyte Esterase Urine WBC (Auto) Urine RBC (Auto) Squamous Epi Cells Auto Urine Mucus (Auto) Urine Ascorbic Acid 03/13/19 03/13/19 03/13/19 20:15 20:50 20:50 WBC RBC Hgb Hct MCV MCH MCHC RDW Plt Count Lymph % (Auto) [place] % (Auto) Eos % (Auto) Baso % (Auto) Absolute Neuts (auto) Absolute Lymphs (auto) Absolute Monos (auto) Absolute Eos (auto) Absolute Basos (auto) Seg Neutrophils % PT INR APTT VBG pH 7.37 VBG pCO2 44.2 VBG HCO3 25.1 VBG Base Excess -0.4 Sodium Potassium Chloride Carbon Dioxide Anion Gap BUN Creatinine Est GFR ( Amer) Est GFR (Non-Af Amer) Est GFR (MDRD) Non-Af Glucose POC Glucose Lactic Acid 1.3 Calcium Total Bilirubin Direct Bilirubin Neonat Total Bilirubin Neonat Direct Bilirubin Neonat Indirect Bili AST ALT Alkaline Phosphatase Creatine Kinase CK-MB (CK-2) Troponin I NT-Pro-B Natriuret Pep 88 Total Protein Albumin EGFR Serum HCG, Qual Urine Color Urine Appearance Urine pH Ur Specific [place] Urine Protein Urine Glucose (UA) Urine Ketones Urine Blood Urine Nitrite Urine Bilirubin Urine Urobilinogen Ur Leukocyte Esterase Urine WBC (Auto) Urine RBC (Auto) Squamous Epi Cells Auto Urine Mucus (Auto) Urine Ascorbic Acid 03/13/19 03/13/19 22:00 22:08 WBC RBC Hgb Hct MCV MCH MCHC RDW Plt Count Lymph % (Auto) [place] % (Auto) Eos % (Auto) Baso % (Auto) Absolute Neuts (auto) Absolute Lymphs (auto) Absolute Monos (auto) Absolute Eos (auto) Absolute Basos (auto) Seg Neutrophils % PT INR APTT VBG pH VBG pCO2 VBG HCO3 VBG Base Excess Sodium 137.4 Potassium 4.1 Chloride 105 Carbon Dioxide 24 Anion Gap 8 BUN 10 Creatinine 0.88 Est GFR ( Amer) > 60 Est GFR (Non-Af Amer) Est GFR (MDRD) Non-Af > 60 Glucose 89 POC Glucose Lactic Acid Calcium 8.6 Total Bilirubin 0.2 Direct Bilirubin 0.1 Neonat Total Bilirubin Not Reportable Neonat Direct Bilirubin Not Reportable Neonat Indirect Bili Not Reportable AST 14 ALT 13 Alkaline Phosphatase 63 Creatine Kinase 59 CK-MB (CK-2) Troponin I NT-Pro-B Natriuret Pep Total Protein 6.9 Albumin 4.0 EGFR Serum HCG, Qual Urine Color YELLOW Urine Appearance CLEAR Urine pH 7.0 Ur Specific [place] 1.017 Urine Protein NEGATIVE Urine Glucose (UA) NEGATIVE Urine Ketones NEGATIVE Urine Blood NEGATIVE Urine Nitrite NEGATIVE Urine Bilirubin NEGATIVE Urine Urobilinogen 2.0 H Ur Leukocyte Esterase TRACE H Urine WBC (Auto) 1 Urine RBC (Auto) 1 Squamous Epi Cells Auto 1 Urine Mucus (Auto) RARE Urine Ascorbic Acid NEGATIVE - Diagnostic Test Radiology reviewed: Image reviewed, Reports reviewed Radiology results interpreted by wv: 03/14/19 00:45 Chest X-Ray 03/13/19 19:49 IMPRESSION: Patchy right lower lobe pneumonia. Chest/Abdomen CTA 03/13/19 23:31 IMPRESSION: No pulmonary embolus. Right lower lobe pneumonia - EKG Interpretation by Mn EKG shows normal: Sinus rhythm Rate: Tachycardia - 106 Rhythm: NSR [place]/QRS: LBBB When compared to previous EKG there are: Changes noted - new LBBB Additional EKG results interpreted by wv: 03/14/19 00:46 Patient had a repeat EKG performed at 2322. On this EKG she has a sinus rhythm with a rate of 90. She has a left bundle branch block. There is no significant changes from the previous EKG. Discharge - Discharge Clinical Impression: Pneumonia Qualifiers: Pneumonia type: due to unspecified organism Laterality: right Lung location: lower lobe of lung Qualified Code(s): J18.1 - Lobar pneumonia, unspecified organism Condition: Stable Disposition: ADMITTED INPATIENT Admitting Provider: Pedro (Hospitalist) Unit Admitted: Telemetry
[2019-03-14] MEDS: KETOROLAC TROMETHAMINE INJ/PF 30 MG/1 ML SDV IV PRN ×2 (01:55→10:45)
--- NOTE | 2019-03-14 06:22 | PDOC H&P ---
History of Present Illness Admission Date/PCP: 03/14/19 00:52 TRACEY PERALTA MD Patient complains of: Shortness of breath and fever History of Present Illness: SUNI KENNEDY is a 34 year old female with a past medical history of asthma, seasonal allergies, tobacco dependence and obesity. She presents with 4 days of nonproductive cough shortness of breath and fever prompting evaluation emergency room where she is found to have tachypnea, use of accessory muscles, a right- sided infiltrate on imaging, leukocytosis, fever and a new left bundle branch block.. She started on empiric antibiotics, albuterol and referred to the hospitalist for admission. Patient admits rhinorrhea, postnasal drip, denies sore throat, infectious contacts or focal pain. Patient admits to a 12-hour period of retrosternal chest pain approximately 2 weeks ago. Past Medical History Pulmonary Medical History: Reports: Asthma Musculoskeltal Medical History: Reports: Arthritis Psychiatric Medical History: Reports: Tobacco Dependency Past Surgical History Past Surgical History: Reports: Section, Tubal Ligation Social History Information Source: Patient, [facility] Records Smoking Status: Current Every Day Smoker Frequency of Alcohol Use: None Drugs: None - Advance Directive Resuscitation Status: Full Code Family History Family History: Arthritis, CAD, COPD, CVA, Hyperlipidemia, Hypertension, Malignancy. denies: Thyroid Disfunction Parental Family History Reviewed: Yes Children Family History Reviewed: Yes Sibling(s) Family History Reviewed.: Yes Medication/Allergy Home Medications: No Home Medications 03/13/19 Allergies/Adverse Reactions: latex Allergy (Verified 07/05/17 15:27) shellfish derived Allergy (Verified 03/13/19 23:52) Review of Systems Constitutional: PRESENT: as per HPI, fatigue, fever(s), night sweats, weakness Eyes: ABSENT: visual disturbances Ears: ABSENT: hearing changes Cardiovascular: PRESENT: as per HPI, chest pain. ABSENT: palpitations Respiratory: PRESENT: as per HPI, cough, dyspnea. ABSENT: sputum Gastrointestinal: ABSENT: abdominal pain, constipation, diarrhea, hematemesis, hematochezia, nausea, vomiting Genitourinary: ABSENT: dysuria, hematuria Musculoskeletal: ABSENT: joint swelling Integumentary: ABSENT: rash, wounds Neurological: ABSENT: abnormal gait, abnormal speech, confusion, dizziness, focal weakness, syncope Psychiatric: ABSENT: anxiety, depression, homidical ideation, suicidal ideation Endocrine: ABSENT: cold intolerance, heat intolerance, polydipsia, polyuria Hematologic/Lymphatic: ABSENT: easy bleeding, easy bruising Physical Exam Vital Signs: Temp Pulse Resp BP Pulse Ox 99.3 F 106 H 24 H 106/76 100 03/14/19 02:00 03/13/19 19:07 03/14/19 05:16 03/14/19 05:16 03/14/19 05:16 Intake & Output 03/12/19 03/13/19 03/14/19 11:59 11:59 11:59 Intake Total 2049 Balance 2049 Weight 98.7 kg General appearance: PRESENT: cooperative, mild distress, obese, well-developed, well-nourished Head exam: PRESENT: atraumatic, normocephalic Eye exam: PRESENT: conjunctiva pink, EOMI, PERRLA. ABSENT: scleral icterus Ear exam: PRESENT: normal external ear exam Mouth exam: PRESENT: moist, tongue midline Neck exam: ABSENT: carotid bruit, JVD, lymphadenopathy, thyromegaly Respiratory exam: PRESENT: accessory muscle use, decreased breath sounds, prolonged expiratory phas, rhonchi, tachypnea. ABSENT: chest wall tenderness, clear to auscultation keysha, symmetrical Cardiovascular exam: PRESENT: RRR. ABSENT: diastolic murmur, rubs, systolic murmur Pulses: PRESENT: normal dorsalis pedis pul Vascular exam: PRESENT: normal capillary refill GI/Abdominal exam: PRESENT: normal bowel sounds, soft. ABSENT: distended, guarding, mass, organolmegaly, rebound, tenderness Rectal exam: PRESENT: deferred Extremities exam: PRESENT: full ROM. ABSENT: calf tenderness, clubbing, pedal edema Neurological exam: PRESENT: alert, awake, oriented to person, oriented to place, oriented to time, oriented to situation, CN II-XII grossly intact. ABSENT: motor sensory deficit Psychiatric exam: PRESENT: appropriate affect, normal mood. ABSENT: homicidal ideation, suicidal ideation Skin exam: PRESENT: dry, intact, warm. ABSENT: cyanosis, rash Results Laboratory Results: 03/13/19 20:15 03/13/19 22:00 03/13/19 03/13/19 03/13/19 20:15 20:15 20:15 WBC 15.6 H RBC 4.26 Hgb 12.4 Hct 37.4 MCV 88 MCH 29.2 MCHC 33.3 RDW 13.8 Plt Count 332 Seg Neutrophils % 80.2 H VBG pH VBG pCO2 VBG HCO3 VBG Base Excess Sodium Cancelled Potassium Cancelled Chloride Cancelled Carbon Dioxide Cancelled Anion Gap Cancelled BUN Cancelled Creatinine Cancelled Est GFR ( Amer) Cancelled Est GFR (Non-Af Amer) Cancelled Glucose Cancelled Lactic Acid Calcium Cancelled Total Bilirubin Cancelled AST Cancelled Alkaline Phosphatase Cancelled Total Protein Cancelled Albumin Cancelled Serum HCG, Qual NEGATIVE Urine Color Urine Appearance Urine pH Ur Specific [place] Urine Protein Urine Glucose (UA) Urine Ketones Urine Blood Urine Nitrite Ur Leukocyte Esterase Urine WBC (Auto) Urine RBC (Auto) 03/13/19 03/13/19 03/13/19 20:50 20:50 22:00 WBC RBC Hgb Hct MCV MCH MCHC RDW Plt Count Seg Neutrophils % VBG pH 7.37 VBG pCO2 44.2 VBG HCO3 25.1 VBG Base Excess -0.4 Sodium 137.4 Potassium 4.1 Chloride 105 Carbon Dioxide 24 Anion Gap 8 BUN 10 Creatinine 0.88 Est GFR ( Amer) > 60 Est GFR (Non-Af Amer) Glucose 89 Lactic Acid 1.3 Calcium 8.6 Total Bilirubin 0.2 AST 14 Alkaline Phosphatase 63 Total Protein 6.9 Albumin 4.0 Serum HCG, Qual Urine Color Urine Appearance Urine pH Ur Specific [place] Urine Protein Urine Glucose (UA) Urine Ketones Urine Blood Urine Nitrite Ur Leukocyte Esterase Urine WBC (Auto) Urine RBC (Auto) 03/13/19 22:08 WBC RBC Hgb Hct MCV MCH MCHC RDW Plt Count Seg Neutrophils % VBG pH VBG pCO2 VBG HCO3 VBG Base Excess Sodium Potassium Chloride Carbon Dioxide Anion Gap BUN Creatinine Est GFR ( Amer) Est GFR (Non-Af Amer) Glucose Lactic Acid Calcium Total Bilirubin AST Alkaline Phosphatase Total Protein Albumin Serum HCG, Qual Urine Color YELLOW Urine Appearance CLEAR Urine pH 7.0 Ur Specific [place] 1.017 Urine Protein NEGATIVE Urine Glucose (UA) NEGATIVE Urine Ketones NEGATIVE Urine Blood NEGATIVE Urine Nitrite NEGATIVE Ur Leukocyte Esterase TRACE H Urine WBC (Auto) 1 Urine RBC (Auto) 1 03/13/19 03/13/19 03/13/19 20:15 20:15 20:15 Creatine Kinase Cancelled CK-MB (CK-2) < 0.22 Troponin I < 0.012 NT-Pro-B Natriuret Pep 88 03/13/19 22:00 Creatine Kinase 59 CK-MB (CK-2) Troponin I NT-Pro-B Natriuret Pep Impressions: Chest X-Ray 03/13/19 19:49 IMPRESSION: Patchy right lower lobe pneumonia. Chest/Abdomen CTA 03/13/19 23:31 IMPRESSION: No pulmonary embolus. Right lower lobe pneumonia Assessment and Plan - Diagnosis (1) Pneumonia Qualifiers: Pneumonia type: due to unspecified organism Laterality: right Lung location: lower lobe of lung Qualified Code(s): J18.1 - Lobar pneumonia, unspecified organism Is this a current diagnosis for this admission?: Yes Plan: Pneumonia care set deployed, albuterol, Atrovent, empiric antibiotics, follow-up blood culture and CBC (2) COPD exacerbation Is this a current diagnosis for this admission?: Yes Plan: Incentive spirometry, flutter valve, supplemental oxygen (3) Allergic sinusitis Is this a current diagnosis for this admission?: Yes Plan: Flonase and chlorpheniramine (4) Left bundle branch block Is this a current diagnosis for this admission?: Yes Plan: No current chest pain patient complained of an episode 2 weeks ago, family history of coronary artery disease. Consider outpatient stress test. (5) Tobacco abuse Is this a current diagnosis for this admission?: Yes Plan: Education, nicotine replacement options discussed. - Time Time Spent with patient: 35 or more minutes - Inpatient Certification Medical Necessity: Need Close Monitoring Due to Risk of Patient Decompensation
--- NOTE | 2019-03-14 07:43 | EKG REPORT ---
SEVERITY:- ABNORMAL ECG - SINUS TACHYCARDIA LEFT BUNDLE BRANCH BLOCK : Confirmed by: Edin Baugh MD 14-Mar-2019 07:43:20
[2019-03-14] MEDS: IPRATROPIUM/ALBUTEROL 0.5-2.5 MG/3 ML AMPUL NEB SCH ×2 (08:17→16:31)
[2019-03-14] MEDS: HEPARIN SOD (PORCINE) 5,000 UNIT/ML 1 ML VIAL SUBCUT SCH ×3 (08:30→21:48)
--- NOTE | 2019-03-14 10:49 | Progress Note ---
Provider Note Provider Note: Patient admitted early a.m. I have reviewed her labs and assessed her as well no acute findings. We will continue azithromycin and Rocephin at this time. Reassess in the a.m.
[2019-03-14] MEDS: GUAIFENESIN/CODEINE PHOS 100-10 MG/ 5 ML UDC PO PRN ×2 (14:38→22:17)
[2019-03-14] MEDS ORDERED: CEFTRIAXONE 1 GM/D5W RTU 1 GM/50 ML RTUPB IV SCH (22:00)
[2019-03-14] MEDS ORDERED: AZITHROMYCIN 500 MG in DEXTROSE 5%-WATER 250 ML IV SCH (22:00)
[2019-03-14] MEDS ORDERED: ONDANSETRON HCL INJ/PF 4 MG/2 ML SDV ONE (23:17)
[2019-03-14] MEDS ORDERED: ONDANSETRON HCL INJ/PF 4 MG/2 ML SDV IV PRN (23:28)
[2019-03-15] MEDS: IPRATROPIUM/ALBUTEROL 0.5-2.5 MG/3 ML AMPUL NEB SCH ×2 (00:21→07:52)
[2019-03-15] MEDS: HEPARIN SOD (PORCINE) 5,000 UNIT/ML 1 ML VIAL SUBCUT SCH (05:34)
[2019-03-15 05:52] LABS: ABSOLUTE EOSINOPHILS # (AUTO) 0.1 10^3/uL (0.0-0.6); ABSOLUTE LYMPHOCYTES (AUTO) 1.9 10^3/uL (0.5-4.7); ABSOLUTE MONOCYTES (AUTO) 0.7 10^3/uL (0.1-1.4); ABSOLUTE NEUT (AUTO) 5.3 10^3/uL (1.7-8.2); BASOPHILS % (AUTO) 0.3 % (0-2); EOSINOPHILS % (AUTO) 1.6 % (0-6); HEMATOCRIT 32.1 % (36.0-47.0); HEMOGLOBIN 10.8 g/dL (12.0-15.5); LYMPHOCYTES % (AUTO) 24.1 % (13-45); MEAN CORPUSCULAR HEMOGLOBIN 29.8 pg (27.0-33.4); MEAN CORPUSCULAR HGB CONC 33.8 g/dL (32.0-36.0); MEAN CORPUSCULAR VOLUME 88 fl (80-97); MONOCYTES % (AUTO) 8.4 % (3-13); PLATELET COUNT 256 10^3/uL (150-450); RED BLOOD COUNT 3.64 10^6/uL (3.72-5.28); RED CELL DISTRIBUTION WIDTH 13.5 % (11.5-14.0); SEGMENTED NEUTROPHILS % (AUTO) 65.6 % (42-78); TOTAL CELLS COUNTED % (AUTO) 100 %
[2019-03-15 06:23] LABS: ANION GAP 8 (5-19); BLOOD UREA NITROGEN 10 mg/dL (7-20); CALCIUM 8.9 mg/dL (8.4-10.2); CARBON DIOXIDE 22 mmol/L (22-30); CHLORIDE 109 mmol/L (98-107); GLUCOSE 115 mg/dL (75-110)
[2019-03-15] MEDS: GUAIFENESIN/CODEINE PHOS 100-10 MG/ 5 ML UDC PO PRN (07:24)
--- NOTE | 2019-03-15 07:53 | PDOC DISCHARGE SUMMARY ---
General - Admit/Disc Date/PCP Admission Date/Primary Care Provider: 03/14/19 00:52 Discharge Date: 03/15/19 - Discharge Diagnosis (1) Right lower lobe pneumonia Is this a current diagnosis for this admission?: Yes (2) COPD exacerbation Is this a current diagnosis for this admission?: Yes (3) Left bundle branch block Is this a current diagnosis for this admission?: Yes (4) Allergic sinusitis Is this a current diagnosis for this admission?: Yes (5) Tobacco abuse Is this a current diagnosis for this admission?: Yes - Additional Information Resuscitation Status: Full Code Discharge Diet: As Tolerated Discharge Activity: Activity As Tolerated Prescriptions: Azithromycin 500 mg PO DAILY #3 tablet Cefuroxime Axetil [Ceftin 500 mg Tablet] 500 mg PO BID #20 tablet Benzonatate [Tessalon Perles 100 mg Capsule] 100 mg PO Q8HP PRN #40 capsule PRN Reason: Home Medications: Azithromycin 500 mg PO DAILY #3 tablet 03/15/19 Benzonatate [Tessalon Perles 100 mg Capsule] 100 mg PO Q8HP PRN #40 capsule 03/15/19 Cefuroxime Axetil [Ceftin 500 mg Tablet] 500 mg PO BID #20 tablet 03/15/19 History of Present Illness Patient complains of: None this a.m. History of Present Illness: SUNI KENNEDY is a 34 year old female who presented to the ER with a medical history of asthma, seasonal allergies and tobacco dependence 4-day history of nonproductive cough with shortness of breath and fever. Hospital Course Hospital Course: Patient was admitted to [facility] with a right lower lobe infiltrate leukocytosis and fever and a new left bundle branch block. She was started on empiric antibiotics given albuterol and referred to the hospitalist for admission. Patient also her admitted to rhinorrhea postnasal drip and some sore throat. Patient was placed on Rocephin and azithromycin. Patient is shown good improvement with a white count resolving. Patient will be discharged home at this time with Ceftin 500 mg p.o. twice daily x10 days and azithromycin 500 mg p.o. daily x3 days. Also give patient Tessalon Perles 100 mg 3 times daily as needed for cough. Patient will be set up with primary care within 1 week. Physical Exam Vital Signs: Temp Pulse Resp BP Pulse Ox 98.5 F 97 20 122/68 98 03/15/19 03:52 03/15/19 03:52 03/15/19 03:52 03/15/19 03:52 03/15/19 03:52 Intake & Output 03/14/19 03/15/19 03/16/19 06:59 06:59 06:59 Intake Total 2049 2574 Balance 2049 2574 Weight 102.6 kg General appearance: PRESENT: no acute distress, well-developed, well-nourished Head exam: PRESENT: atraumatic, normocephalic Eye exam: PRESENT: conjunctiva pink, EOMI, PERRLA. ABSENT: scleral icterus Ear exam: PRESENT: normal external ear exam Mouth exam: PRESENT: moist, tongue midline Neck exam: ABSENT: carotid bruit, JVD, lymphadenopathy, thyromegaly Respiratory exam: PRESENT: clear to auscultation keysha. ABSENT: rales, rhonchi, wheezes Cardiovascular exam: PRESENT: RRR. ABSENT: diastolic murmur, rubs, systolic murmur Pulses: PRESENT: normal dorsalis pedis pul Vascular exam: PRESENT: normal capillary refill GI/Abdominal exam: PRESENT: normal bowel sounds, soft. ABSENT: distended, guarding, mass, organolmegaly, rebound, tenderness Rectal exam: PRESENT: deferred Extremities exam: PRESENT: full ROM. ABSENT: calf tenderness, clubbing, pedal edema Neurological exam: PRESENT: alert, awake, oriented to person, oriented to place, oriented to time, oriented to situation, CN II-XII grossly intact. ABSENT: motor sensory deficit Psychiatric exam: PRESENT: appropriate affect, normal mood. ABSENT: homicidal ideation, suicidal ideation Skin exam: PRESENT: dry, intact, warm. ABSENT: cyanosis, rash Results Laboratory Results: 03/15/19 05:37 03/15/19 05:37 03/15/19 03/15/19 05:37 05:37 WBC 8.0 RBC 3.64 L Hgb 10.8 L Hct 32.1 L MCV 88 MCH 29.8 MCHC 33.8 RDW 13.5 Plt Count 256 Seg Neutrophils % 65.6 Sodium 139.0 Potassium 4.0 Chloride 109 H Carbon Dioxide 22 Anion Gap 8 BUN 10 Creatinine 0.78 Est GFR ( Amer) > 60 Glucose 115 H Calcium 8.9 03/13/19 03/13/1903/13/19 20:15 20:15 20:15 Creatine Kinase Cancelled CK-MB (CK-2) < 0.22 Troponin I < 0.012 NT-Pro-B Natriuret Pep 88 03/13/19 22:00 Creatine Kinase 59 CK-MB (CK-2) Troponin I NT-Pro-B Natriuret Pep Impressions: Chest X-Ray 03/13/19 19:49 IMPRESSION: Patchy right lower lobe pneumonia. Chest/Abdomen CTA 03/13/19 23:31 IMPRESSION: No pulmonary embolus. Right lower lobe pneumonia Qualifiers - * PATIENT BEING DISCHARGED WITH ANY OF THE FOLLOWING DIAGNOSIS: No Acute Heart Failure - Is this a Heart Failure Patient?: No Plan Time Spent: Greater than 30 Minutes
[2019-03-15 08:54] VITALS: BP 105/58
== END 2019-03-15 09:45 | disposition home or self-care (01) ==
LOC: ER 18:52 → INTOOBSV 03-14 00:52 → EH 03-14 00:52 → 3W 03-14 06:18
PROVIDERS: ADMIT Internal Medicine; ATTEND Internal Medicine
DX: J18.1 Lobar pneumonia, unspecified organism (principal); J44.0 Chronic obstructive pulmonary disease with (acute) lower respiratory infection; J44.1 Chronic obstructive pulmonary disease with (acute) exacerbation; I44.7 Left bundle-branch block, unspecified; J30.9 Allergic rhinitis, unspecified; F17.200 Nicotine dependence, unspecified, uncomplicated; E66.9 Obesity, unspecified; F12.10 Cannabis abuse, uncomplicated; R00.0 Tachycardia, unspecified; R03.0 Elevated blood-pressure reading, without diagnosis of hypertension; Z82.49 Family history of ischemic heart disease and other diseases of the circulatory system; Z82.5 Family history of asthma and other chronic lower respiratory diseases
CPT/HCPCS: 93005; 99285; 96361; 96365; 36415 ×2; 87040; 87086; 82553; 82962; 82550; 84703; 85025 ×2; 85610; 85730; 80048; 80053; 81001; 84484; 82803; 83605; 83880; 71045; 71275; 94799 ×2; 93010; 94640 ×3; G0378 ×3; J1644 ×2; Q0144; J1885; J3490 ×2; J2405; J7060; J7030 ×2; J0456; J0696 ×2; J7620 ×2

== ENCOUNTER 2019-09-11 11:35 | Emergency (ER) | payer MEDICAID ==
--- NOTE | 2019-09-11 12:57 | ER Document Report ---
ED Medical Screen (RME) - General Stated Complaint: COUGH/SHORTNESS OF BREATH Time Seen by Provider: 09/11/19 12:51 Mode of Arrival: Ambulatory Information source: Patient Notes: 34-year-old female presents with sudden onset shortness of breath cough, short of breath sore throat. Denies vomiting. Patient did not receive flu vaccine. Patient has not been exposed to anyone with his coronavirus as far she knows. She went to [place] [employer] last night when she left she started feeling short of breath congestion. Patient works at [employer]. Denies history of asthma COPD. Patient does smoke. I have greeted and performed a rapid initial assessment of this patient. A comprehensive ED assessment and evaluation of the patient, analysis of test results and completion of the medical decision making process will be conducted by additional ED providers. TRAVEL OUTSIDE OF THE [place] IN LAST 30 DAYS: No - Related Data Allergies/Adverse Reactions: latex Allergy (Verified 09/11/19 12:50) shellfish derived Allergy (Verified 09/11/19 12:50) Past Medical History Pulmonary Medical History: Reports: Hx Asthma Renal/ Medical History: Denies: Hx Peritoneal Dialysis Musculoskeltal Medical History: Reports Hx Arthritis, Reports Hx Musculoskeletal Deformity Past Surgical History: Reports: Hx Section, Hx Tubal Ligation - Immunizations Hx Diphtheria, Pertussis, Tetanus Vaccination: No Physical Exam - Vital signs Vitals: Temp Pulse Resp BP Pulse Ox 98.2 F 97 16 149/96 H 100 09/11/19 12:09 09/11/19 12:09/11/19 12:09/11/19 12:09/11/19 12:09 Course - Vital Signs Vital signs: Temp Pulse Resp BP Pulse Ox 98.2 F 97 16 149/96 H 100 09/11/19 12:09/11/19 12:09/11/19 12:09/11/19 12:09/11/19 12:09
[2019-09-11 13:45] LABS: A TYPE INFLUENZA AG NEGATIVE (NEGATIVE); B INFLUENZA AG NEGATIVE (NEGATIVE)
--- NOTE | 2019-09-11 13:45 | RADIOLOGY REPORT (SQ) ---
EXAM DESCRIPTION: CHEST 2 VIEWS COMPLETED DATE/TIME: 09/11/2019 1:29 pm REASON FOR STUDY: COUGH SOB COMPARISON: 03/13/2019 EXAM PARAMETERS: NUMBER OF VIEWS: two views TECHNIQUE: Digital Frontal and Lateral radiographic views of the chest acquired. RADIATION DOSE: NA LIMITATIONS: none FINDINGS: LUNGS AND PLEURA: No opacities, masses or pneumothorax. No pleural effusion. MEDIASTINUM AND HILAR STRUCTURES: No masses or contour abnormalities. HEART AND VASCULAR STRUCTURES: Heart normal size. No evidence for failure. BONES: No acute findings. HARDWARE: None in the chest. OTHER: No other significant finding. IMPRESSION: NO ACUTE RADIOGRAPHIC FINDING IN THE CHEST. TECHNICAL DOCUMENTATION: JOB ID: [id number] 2010 [employer]- All Rights Reserved Reading location - IP/workstation name: [email or web address]
[2019-09-11] MEDS ORDERED: ALBUTEROL SULFATE HFA (90 MCG/PUFF) 8 GM MDI (1 MDI/ER DISP) IH PRN (15:05)
--- NOTE | 2019-09-11 15:09 | ER Document Report ---
ED Respiratory Problem - General Chief Complaint: Cough Stated Complaint: COUGH/SHORTNESS OF BREATH Time Seen by Provider: 09/11/19 12:51 Primary Care Provider: [facility] [Provider Group] - Follow up in 3-5 days Mode of Arrival: Ambulatory Notes: Patient is a 34-year-old female who presents to the emergency department with a chief complaint of a cough, shortness of breath, sore throat, and generally not feeling well. Patient states that she went to [facility] last night and she felt congested. Patient states that she does not have any known coronavirus contact. She denies any recent travel. Is any fever. She states that she is worried that she may be starting to have pneumonia, as she has been admitted for pneumonia in the past. Patient states that she wanted to come in earlier instead of waiting a long time like she did last time. Patient works at [employer] TRAVEL OUTSIDE OF THE [place] IN LAST 30 DAYS: No - Related Data Allergies/Adverse Reactions: latex Allergy (Verified 09/11/19 12:50) No Known Drug Allergies Allergy (Verified 09/11/19 12:59) shellfish derived Allergy (Verified 09/11/19 12:50) Past Medical History - General Information source: Patient - Social History Smoking Status: Current Every Day Smoker Family History: Arthritis, CAD, COPD, CVA, Hyperlipidemia, Hypertension, Malignancy. denies: Thyroid Disfunction Patient has suicidal ideation: No Patient has homicidal ideation: No Pulmonary Medical History: Reports: Hx Asthma Renal/ Medical History: Denies: Hx Peritoneal Dialysis Musculoskeletal Medical History: Reports Hx Arthritis, Reports Hx Musculoskeletal Deformity Past Surgical History: Reports: Hx Section, Hx Tubal Ligation - Immunizations Hx Diphtheria, Pertussis, Tetanus Vaccination: No Review of Systems - Review of Systems Notes: REVIEW OF SYSTEMS: CONSTITUTIONAL : Denies recent illness. Denies recent unintentional weight loss. Denies fever, chills, or sweats. EENT: Denies eye, ear, throat, or mouth pain, discharge, or symptoms. See HPI. CARDIOVASCULAR: Denies chest pain. RESPIRATORY: See HPI GASTROINTESTINAL: Denies nausea, vomiting, and diarrhea. Denies abdominal pain. Denies constipation. GENITOURINARY: Denies difficulty urinating, burning, blood in urine, urgency or frequency. MUSCULOSKELETAL: Denies neck and back pain. Denies joint pain or swelling. SKIN: Denies rash, itchiness, or lesions HEMATOLOGIC : Denies easy bruising or bleeding. LYMPHATIC: Denies swollen, painful, enlarged glands. NEUROLOGICAL: Denies no numbness or tingling denies weakness. Denies headache. Denies altered mental status. Denies alteration in speech. PSYCHIATRIC: Denies stress, anxiety, alteration in sleep patterns, or depression. All other systems reviewed and negative. Physical Exam - Vital signs Vitals: Temp Pulse Resp BP Pulse Ox 98.2 F 97 16 149/96 H 100 09/11/19 12:09 09/11/19 12:09/11/19 12:09/11/19 12:09/11/19 12:09 - Notes Notes: PHYSICAL EXAMINATION: GENERAL: Appears well, healthy, well-nourished, no acute distress. HEAD: Normocephalic, atraumatic. EYES: PERRL, conjunctiva normal, all extraocular movements intact, sclera nonicteric ENT: Moist mucous membranes. Edema and erythema noted to nasal mucosa. Purulent drainage noted behind right tympanic membrane. NECK: Supple, no noticeable swelling, redness, rash. Normal range of motion. LUNGS: Equal breath sounds bilaterally and clear to auscultation. No wheezes rales or rhonchi. CARDIOVASCULAR: S1-S2, regular rate, regular rhythm. Radial pulses 2+, normal. ABDOMEN: Normoactive bowel sounds. Soft, nontender, no guarding, no rebound tenderness, and no masses palpated. EXTREMITIES: Normal strength and range of motion, no pitting or edema. No cyanosis. NEUROLOGICAL: Moves all extremities upon command. Strength 5/5 in all extremities. PSYCH: Normal mood, normal affect. SKIN: Warm, dry. No rash, lesions, ulcerations noted. Normal skin turgor. Course - Re-evaluation Re-evalutation: 09/11/19 Chest x-ray is normal. Influenza test is negative. Patient does have mucus noted behind her right tympanic membrane. She will be started on amoxicillin. No mastoid tenderness noted. She also has edema and erythema noted to her nasal mucosa. She will be started on Flonase. She does have some postnasal drip which may be the cause of her cough and shortness of breath. She is in agreement with this plan. Follow-up precautions were given. Verbal discharge instructions were given to the patient. They verbalized understanding. They are stable for discharge. - Vital Signs Vital signs: Temp Pulse Resp BP Pulse Ox 98.2 F 89 18 132/78 H 98 09/11/19 15:22 09/11/19 15:22 09/11/19 15:22 09/11/19 15:22 09/11/19 15:22 Discharge - Discharge Clinical Impression: Cough Right otitis media Qualifiers: Otitis media type: mucoid Chronicity: acute Qualified Code(s): H65.111 - Acute and subacute allergic otitis media (mucoid) (sanguinous) (serous), right ear Allergic rhinitis Qualifiers: Allergic rhinitis trigger: pollen Allergic rhinitis seasonality: seasonal Qualified Code(s): J30.1 - Allergic rhinitis due to pollen Condition: Stable Disposition: HOME, SELF-CARE Additional Instructions: You were seen today in the emergency department for a cough, congestion, and generally not feeling well. You have an ear infection on the right side, which may be causing you to have your symptoms. You are also being started on prednisone for your asthma. Please also use Flonase and cetirizine to help with your runny nose. Follow-up with primary care provider in regards to this visit. You are also being sent home with an inhaler. You can take 1 to 2 puffs every 4-6 hours as needed for shortness of breath. Prescriptions: Cetirizine HCl [All Day Allergy] 10 mg PO DAILY #30 tablet Amoxicillin Trihydrate [Amoxil 500 mg Capsule] 500 mg PO TID #30 cap Prednisone [Deltasone 20 mg Tablet] 3 tab PO DAILY 5 Days #15 tablet Fluticasone Propionate [Flonase Nasal Bloomer 50 Mcg/Bloomer 16 gm] 2 sprays NASL DAILY #1 inhaler Forms: Return to Work Referrals: [facility] [Provider Group] - Follow up in 3-5 days
[2019-09-11 15:23] VITALS: BP 132/78
--- NOTE | 2019-09-11 15:37 | EKG REPORT ---
SEVERITY:- ABNORMAL ECG - SINUS RHYTHM LEFT BUNDLE BRANCH BLOCK : Confirmed by: Sivan Harris MD 11-Sep-2019 15:36:50
== END 2019-09-11 15:23 | disposition home or self-care (01) ==
LOC: ER 11:35
DX: H65.111 Acute and subacute allergic otitis media (mucoid) (sanguinous) (serous), right ear (principal); J45.909 Unspecified asthma, uncomplicated; R05 Cough; J02.9 Acute pharyngitis, unspecified; R06.02 Shortness of breath; F17.200 Nicotine dependence, unspecified, uncomplicated; Z87.01 Personal history of pneumonia (recurrent); Z91.040 Latex allergy status; Z91.013 Allergy to seafood
CPT/HCPCS: 93005; 99284; 87070; 87880; 87804; 71046; 93010; J3490

== ENCOUNTER 2019-09-12 23:08 | Emergency (ER) | payer MEDICAID ==
--- NOTE | 2019-09-12 23:55 | ER Document Report ---
HPI - HPI Patient complains to provider of: Condom stuck in vagina Time Seen by Provider: 09/12/19 23:49 Onset: Just prior to arrival Quality of pain: No pain Context: 34-year-old female presents emergency department with reports of a condom stuck in her vagina. She reports that happened prior to arrival. As we are talking patient reports she feels like it is falling out. She left, went to the bathroom, came back and reports it fell out. She denies other symptoms such as fever vomiting diarrhea. She denies pain with void. She denies vaginal discharge. Patient laughing no distress. Associated Symptoms: None Exacerbated by: Denies Relieved by: Denies Similar symptoms previously: No Recently seen / treated by doctor: No - REPRODUCTIVE Reproductive: DENIES: : Past Medical History - General Information source: Patient - Social History Smoking Status: Unknown if Ever Smoked Family History: Arthritis, CAD, COPD, CVA, Hyperlipidemia, Hypertension, Malignancy. denies: Thyroid Disfunction Patient has suicidal ideation: No Patient has homicidal ideation: No Pulmonary Medical History: Reports: Hx Asthma Renal/ Medical History: Denies: Hx Peritoneal Dialysis Musculoskeletal Medical History: Reports Hx Arthritis, Reports Hx Musculoskeletal Deformity Past Surgical History: Reports: Hx Section, Hx Tubal Ligation - Immunizations Hx Diphtheria, Pertussis, Tetanus Vaccination: No Vertical Provider Document - CONSTITUTIONAL Agree With Documented VS: Yes Exam Limitations: No Limitations General Appearance: WD/WN, No Apparent Distress - INFECTION CONTROL TRAVEL OUTSIDE OF THE [place] IN LAST 30 DAYS: No - HEENT HEENT: Atraumatic, Normocephalic - NECK Neck: Supple - RESPIRATORY Respiratory: No Respiratory Distress - CARDIOVASCULAR Cardiovascular: Tachycardia - MUSCULOSKELETAL/EXTREMETIES Musculoskeletal/Extremeties: DOMINICK HARVEY - NEURO Level of Consciousness: Awake, Alert, Appropriate Motor/Sensory: No Motor Deficit - DERM Integumentary: Warm, Dry Course - Re-evaluation Re-evalutation: 09/12/19 23:59 Patient was instructed on high blood pressure. Ducted to monitor and follow-up with her primary care provider regarding that. She was also instructed to return for concerns difficulty voiding vaginal discharge. She verbalized understanding to all instructions. - Vital Signs Vital signs: Temp Pulse Resp BP Pulse Ox 98.7 F 101 H 18 163/97 H 100 09/12/19 23:32 09/12/19 23:32 09/12/19 23:32 09/12/19 23:32 09/12/19 23:32 Discharge - Discharge Clinical Impression: Foreign body in vagina Qualifiers: Encounter type: initial encounter Qualified Code(s): T19.2XXA - Foreign body in vulva and vagina, initial encounter Condition: Stable Disposition: HOME, SELF-CARE Additional Instructions: *You have been evaluated for a condom stuck in your vagina that fell out before your exam *Follow up with a primary care provider within as indicated for recheck *Return to ED for concerns difficulty voiding vaginal discharge
[2019-09-13] VITALS: BP 151/90
== END 2019-09-13 | disposition home or self-care (01) ==
LOC: ER 23:08
DX: T19.2XXA Foreign body in vulva and vagina, initial encounter (principal); X58.XXXA Exposure to other specified factors, initial encounter; Z98.51 Tubal ligation status
CPT/HCPCS: 99283

== ENCOUNTER 2019-12-03 14:22 | Emergency (ER) | payer MEDICAID ==
--- NOTE | 2019-12-03 16:06 | ER Document Report ---
ED General - General Chief Complaint: Shortness Of Breath Stated Complaint: SHORTNESS OF BREATH Time Seen by Provider: 12/03/19 15:28 Primary Care Provider: BRIAN QUEEN MD [Primary Care Provider] - Follow up as needed Mode of Arrival: Ambulatory Information source: Patient Notes: Patient is an otherwise healthy 34-year-old female presenting to the emergency department with shortness of breath, productive cough and epigastric pain. Patient reports shortness of breath is worse when lying down. She denies any fever or chills. Denies any known exposure 20 COVID-19 patients. She does report a history of asthma and states that it is typically well controlled. She has had a history of pneumonia x2. TRAVEL OUTSIDE OF THE [place] IN LAST 30 DAYS: No - Related Data Allergies/Adverse Reactions: latex Allergy (Verified 09/11/19 12:50) No Known Drug Allergies Allergy (Verified 09/11/19 12:59) shellfish derived Allergy (Verified 09/11/19 12:50) Past Medical History - General Information source: Patient - Social History Smoking Status: Current Every Day Smoker Frequency of alcohol use: None Drug Abuse: None Family History: Arthritis, CAD, COPD, CVA, Hyperlipidemia, Hypertension, Malignancy. denies: Thyroid Disfunction Pulmonary Medical History: Reports: Hx Asthma, Hx Pneumonia Renal/ Medical History: Denies: Hx Peritoneal Dialysis Musculoskeletal Medical History: Reports Hx Arthritis, Reports Hx Musculoskeletal Deformity Past Surgical History: Reports: Hx Section, Hx Tubal Ligation - Immunizations Hx Diphtheria, Pertussis, Tetanus Vaccination: No Review of Systems - Review of Systems EENT: See HPI Cardiovascular: See HPI Respiratory: See HPI -: Yes All other systems reviewed and negative Physical Exam - Vital signs Vitals: Temp Pulse Resp BP Pulse Ox 98.6 F 96 18 132/84 H 100 12/03/19 15:36 12/03/19 15:36 12/03/19 15:36 12/03/19 15:36 12/03/19 15:36 - Notes Notes: PHYSICAL EXAMINATION: GENERAL: Well-appearing, well-nourished and in no acute distress. HEAD: Atraumatic, normocephalic. EYES: Pupils equal round and reactive to light, extraocular movements intact, conjunctiva are normal. ENT: Nares patent, oropharynx clear without exudates. Moist mucous membranes. NECK: Normal range of motion, supple without lymphadenopathy LUNGS: Breath sounds clear to auscultation bilaterally and equal. No wheezes rales or rhonchi. HEART: Regular rate and rhythm without murmurs ABDOMEN: Soft, nontender, nondistended abdomen. No guarding, no rebound. No m asses appreciated. Female : deferred Musculoskeletal: Normal range of motion, no pitting or edema. No cyanosis. NEUROLOGICAL: Cranial nerves grossly intact. Normal speech, normal gait. Normal sensory, motor exams PSYCH: Normal mood, normal affect. SKIN: Warm, Dry, normal turgor, no rashes or lesions noted. Course - Re-evaluation Re-evalutation: Laboratory 12/03/19 12/03/19 12/03/19 16:09 16:09 16:09 WBC 9.3 RBC 4.13 Hgb 11.9 L Hct 35.8 L MCV 87 MCH 28.8 MCHC 33.2 RDW 15.3 H Plt Count 300 Lymph % (Auto) 16.4 [place] % (Auto) 7.9 Eos % (Auto) 1.9 Baso % (Auto) 0.4 Absolute Neuts (auto) 6.9 Absolute Lymphs (auto) 1.5 Absolute Monos (auto) 0.7 Absolute Eos (auto) 0.2 Absolute Basos (auto) 0.0 Seg Neutrophils % 73.4 D-Dimer Sodium 138.5 Potassium 4.2 Chloride 109 H Carbon Dioxide 25 Anion Gap 5 BUN 12 Creatinine 0.75 Est GFR ( Amer) > 60 Est GFR (MDRD) Non-Af > 60 Glucose 87 Calcium 9.0 Total Bilirubin 0.6 Direct Bilirubin 0.0 Neonat Total Bilirubin Not Reportable Neonat Direct Bilirubin Not Reportable Neonat Indirect Bili Not Reportable AST 31 ALT 42 H Alkaline Phosphatase 61 Troponin I < 0.012 NT-Pro-B Natriuret Pep 1030 H Total Protein 6.9 Albumin 4.0 12/03/19 16:09 WBC RBC Hgb Hct MCV MCH MCHC RDW Plt Count Lymph % (Auto) [place] % (Auto) Eos % (Auto) Baso % (Auto) Absolute Neuts (auto) Absolute Lymphs (auto) Absolute Monos (auto) Absolute Eos (auto) Absolute Basos (auto) Seg Neutrophils % D-Dimer 0.43 Sodium Potassium Chloride Carbon Dioxide Anion Gap BUN Creatinine Est GFR ( Amer) Est GFR (MDRD) Non-Af Glucose Calcium Total Bilirubin Direct Bilirubin Neonat Total Bilirubin Neonat Direct Bilirubin Neonat Indirect Bili AST ALT Alkaline Phosphatase Troponin I NT-Pro-B Natriuret Pep Total Protein Albumin Chest X-Ray 12/03/19 16:03 IMPRESSION: NO ACUTE FINDINGS. Chest/Abdomen CTA 12/03/19 19:06 IMPRESSION: Patchy groundglass opacity throughout both lungs with elements of smooth interlobular septal thickening and small right pleural effusion. Overall, findings are most suspicious for mild interstitial edema though an underlying viral pneumonitis could technically have this appearance. Mild mediastinal and bilateral hilar lymph node enlargement, likely reactive. Cardiomegaly. TECHNICAL DOCUMENTATION: Quality ID # [id number]: Final reports with documentation of one or more dose reduction techniques (e.g., Automated exposure control, adjustment of the mA and/or kV according to patient size, use of iterative reconstruction technique) copyright 2011 [employer]- All Rights Reserved - Vital Signs Vital signs: Temp Pulse Resp BP Pulse Ox 98.6 F 93 26 H 147/99 H 99 12/03/19 15:40 12/03/19 22:50 12/03/19 22:50 12/03/19 22:50 12/03/19 22:50 - Laboratory Result Diagrams: 12/03/19 16:09 12/03/19 16:09 Laboratory results interpreted by me: 12/03/19 12/03/19 12/03/19 16:09 16:09 16:09 Hgb 11.9 L Hct 35.8 L RDW 15.3 H Chloride 109 H ALT 42 H NT-Pro-B Natriuret Pep 1030 H Discharge - Discharge Clinical Impression: Shortness of breath, Ground glass opacity present on imaging of lung, COVID-19 virus test result unknown Asthma Qualifiers: Asthma severity: mild Asthma persistence: unspecified Asthma complication type: unspecified Qualified Code(s): J45.909 - Unspecified asthma, uncomplicated Condition: Stable Disposition: HOME, SELF-CARE Additional Instructions: Your lab work today was reassuring. The CAT scan of your chest showed groundglass opacities to both lungs. Although this is a nonspecific finding this is commonly found in patients with COVID-19. For this reason it is important to test you for COVID-19. You must self quarantine until your testing has returned. This is taken approximately 48 hours. The health department will call you. Today your chest x-ray did not show any signs of pneumonia. I suspect your cough is coming from a viral infection. Your oxygen level is not so low that you need to be admitted. If simply walking across the room makes you feel like you are going to pass out or like you just walked up 2 flights of steps please return to the emergency department. Please let any healthcare personnel that you see know that you have been tested for coronavirus. This includes if you need to return to the emergency department. You were tested for coronavirus (COVID 19) but these results may take 2-3 days or more to come back. Please stay in your house until they are resulted back or until you have been completely symptom-free for at least 3 days. Prescriptions: Benzonatate [Tessalon Perles 100 mg Capsule] 1 - 2 tab PO Q8HP PRN #30 capsule PRN Reason: Prednisone [Deltasone 20 mg Tablet] 3 tab PO DAILY 4 Days #12 tablet Forms: Return to Work Referrals: BRIAN QUEEN MD [Primary Care Provider] - Follow up as needed
[2019-12-03 16:20] LABS: ABSOLUTE EOSINOPHILS # (AUTO) 0.2 10^3/uL (0.0-0.6); ABSOLUTE LYMPHOCYTES (AUTO) 1.5 10^3/uL (0.5-4.7); ABSOLUTE MONOCYTES (AUTO) 0.7 10^3/uL (0.1-1.4); ABSOLUTE NEUT (AUTO) 6.9 10^3/uL (1.7-8.2); BASOPHILS % (AUTO) 0.4 % (0-2); EOSINOPHILS % (AUTO) 1.9 % (0-6); HEMATOCRIT 35.8 % (36.0-47.0); HEMOGLOBIN 11.9 g/dL (12.0-15.5); LYMPHOCYTES % (AUTO) 16.4 % (13-45); MEAN CORPUSCULAR HEMOGLOBIN 28.8 pg (27.0-33.4); MEAN CORPUSCULAR HGB CONC 33.2 g/dL (32.0-36.0); MEAN CORPUSCULAR VOLUME 87 fl (80-97); MONOCYTES % (AUTO) 7.9 % (3-13); PLATELET COUNT 300 10^3/uL (150-450); RED BLOOD COUNT 4.13 10^6/uL (3.72-5.28); RED CELL DISTRIBUTION WIDTH 15.3 % (11.5-14.0); SEGMENTED NEUTROPHILS % (AUTO) 73.4 % (42-78); TOTAL CELLS COUNTED % (AUTO) 100 %; WHITE BLOOD COUNT 9.3 10^3/uL (4.0-10.5)
[2019-12-03 16:45] LABS: ALKALINE PHOSPHATASE 61 U/L (38-126); ANION GAP 5 (5-19); ASPARTATE AMINO TRANSFERASE 31 U/L (14-36); BILIRUBIN,TOTAL 0.6 mg/dL (0.2-1.3); BLOOD UREA NITROGEN 12 mg/dL (7-20); CARBON DIOXIDE 25 mmol/L (22-30); CHLORIDE 109 mmol/L (98-107); GLUCOSE 87 mg/dL (75-110); POTASSIUM 4.2 mmol/L (3.6-5.0); TOTAL PROTEIN 6.9 g/dL (6.3-8.2)
--- NOTE | 2019-12-03 16:56 | RADIOLOGY REPORT (SQ) ---
EXAM DESCRIPTION: CHEST SINGLE VIEW IMAGES COMPLETED DATE/TIME: 12/03/2019 4:38 pm REASON FOR STUDY: shortness of breath COMPARISON: 09/11/2019 TECHNIQUE: Single frontal radiographic view of the chest acquired. NUMBER OF VIEWS: One view. LIMITATIONS: None. FINDINGS: LUNGS AND PLEURA: No pneumothorax. No consolidation or pleural effusion. MEDIASTINUM AND HILAR STRUCTURES: Stable. HEART AND VASCULAR STRUCTURES: Stable. BONES: No acute findings. HARDWARE: None in the chest. OTHER: No other significant finding. IMPRESSION: NO ACUTE FINDINGS. TECHNICAL DOCUMENTATION: JOB ID: [id number] [place]-72 2010 [employer]- All Rights Reserved Reading location - IP/workstation name: [email or web address]
[2019-12-03 17:03] LABS: NT PRO BNP 1030 pg/mL (<125)
[2019-12-03 17:07] LABS: TROPONIN I < 0.012 ng/mL
--- NOTE | 2019-12-03 19:10 | ER Document Report ---
Doctor's Note Notes: 12/03/19 19:06 This is a 34-year-old female who was seen primarily by nurse practitioner and I was asked to also evaluate this patient. Patient has a history of asthma. She came in today because of some increased difficulty with her breathing. She is having some mild pleuritic discomfort. No hemoptysis. She has no personal nor family history of thromboembolic disease. No hormone administration. No recent trauma or immobilization. 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 She has not tested positive for COVID. She is not experiencing fever. She is not producing sputum. Her chest is relatively clear here. She is mildly tachycardic at rest. She has no peripheral edema. EKG was remarkable for some mild sinus tachycardia. Chest x-ray is normal per radiologist. Troponin is normal. She has mild anemia with hemoglobin 11.9 g. BNP was elevated around 1000. Normal O2 saturation at rest but she desaturated to about 92% with ambulation. D-dimer was normal. Despite this I note she has several potential risk factors for thromboembolic disease and in view of the clinical situation I think she should have a CT angiogram of the chest. If this is negative I think we should probably treat her as a potential asthma exacerbation and give her some steroids for a few days and have her follow-up outpatient with her primary care doctor. She may also need a sleep study to rule out obstructive sleep apnea.
--- NOTE | 2019-12-03 21:55 | RADIOLOGY REPORT (SQ) ---
EXAM DESCRIPTION: CT CHEST ANGIOGRAPHY WITHOUT THEN WITH IV CONTRAST COMPLETED DATE/TME: 12/03/2019 19:06 CLINICAL HISTORY: 34 years, Female, shotness of breath, eval for PE/pneumonia COMPARISON: Prior CT chest dated 03/14/2019 TECHNIQUE: Contrast enhanced CTA of the chest was acquired after the uneventful administration of 80 mL of Omnipaque 350 intravenous contrast. MIPS were created. Images stored on PACS. All CT scanners at this facility use dose modulation, iterative reconstruction, and/or weight based dosing when appropriate to reduce radiation dose to as low as reasonably achievable (ALARA). [facility]: Dose Right [facility]: CareDose [facility]: Dose Right [facility]: Teradose 4D [facility]: Joognu LIMITATIONS: None. FINDINGS: Central airways are patent. However, there is diffuse bronchial wall thickening as well as multifocal smooth interlobular septal thickening. Areas of patchy groundglass opacity are also noted about both lungs. A small right pleural effusion is evident. Mediastinal windows show a few mildly enlarged bilateral hilar and mediastinal lymph nodes. The largest is located about the subcarinal region measuring approximately 1.7 x 1.3 cm in size. Heart appears enlarged, especially the left ventricle. Study is adequate for the evaluation of pulmonary emboli. No filling defects are identified to the proximal segmental level. Limited evaluation of the upper abdomen reveals no suspicious abnormality. Bone windows show no destructive osseous lesions. IMPRESSION: Patchy groundglass opacity throughout both lungs with elements of smooth interlobular septal thickening and small right pleural effusion. Overall, findings are most suspicious for mild interstitial edema though an underlying viral pneumonitis could technically have this appearance. Mild mediastinal and bilateral hilar lymph node enlargement, likely reactive. Cardiomegaly. TECHNICAL DOCUMENTATION: Quality ID # [id number]: Final reports with documentation of one or more dose reduction techniques (e.g., Automated exposure control, adjustment of the mA and/or kV according to patient size, use of iterative reconstruction technique) copyright 2011 [employer]- All Rights Reserved
[2019-12-03] MEDS ORDERED: PREDNISONE 20 MG TABLET PO ONE (22:12)
[2019-12-03] MEDS ORDERED: ALBUTEROL SULFATE HFA (90 MCG/PUFF) 8 GM MDI IH ONE (22:39)
[2019-12-03 22:50] VITALS: BP 147/99
--- NOTE | 2019-12-03 23:22 | EKG REPORT ---
SEVERITY:- ABNORMAL ECG - SINUS RHYTHM LEFT BUNDLE BRANCH BLOCK : Confirmed by: Suzy Xie 03-Dec-2019 23:21:36
== END 2019-12-03 22:57 | disposition home or self-care (01) ==
LOC: ER 14:22
DX: J45.909 Unspecified asthma, uncomplicated (principal); J90 Pleural effusion, not elsewhere classified; R59.0 Localized enlarged lymph nodes; R06.02 Shortness of breath; I51.7 Cardiomegaly; R00.0 Tachycardia, unspecified; D64.9 Anemia, unspecified; R10.13 Epigastric pain; Z20.828 Contact with and (suspected) exposure to other viral communicable diseases; F17.200 Nicotine dependence, unspecified, uncomplicated; Z87.01 Personal history of pneumonia (recurrent); Z91.040 Latex allergy status; Z91.013 Allergy to seafood
CPT/HCPCS: 93005; 99285; 36415; 85025; 87635; 80053; 84484; 85379; 83880; 71045; 71275; 93010; J7512; J3490; C9803

== ENCOUNTER 2020-04-20 21:35 | Observation (INO) | payer MEDICAID ==
--- NOTE | 2020-04-20 21:47 | ER Document Report ---
ED Medical Screen (RME) - General Chief Complaint: Chest Pain Stated Complaint: CHEST PAIN Time Seen by Provider: 04/20/20 21:39 Primary Care Provider: BRIAN QUEEN MD [Primary Care Provider] - Follow up as needed Mode of Arrival: Ambulatory Information source: Patient Notes: 35-year-old female presented to ED for complaint of chest pain on and off for 2 weeks. She states she does have asthma and thought it was just her asthma but it is getting worse. She states she cannot lay down to sleep at night because she gets so short of breath and her chest hurts so bad she is not able to sleep. She states that her friend says that she sounds funny when she is sleeping. I asked her if she ever been evaluated with a sleep study she stated none. She states she used to smoke a pack a day now she is down to about 3 cigarettes a day. She states the only medical history she has is asthma. She states her asthma medications are not helping her at this time. She is alert oriented respirations regular nonlabored speaking in full sentences at this time. I have greeted and performed a rapid initial assessment of this patient. A comprehensive ED assessment and evaluation of the patient, analysis of test results and completion of medical decision making process will be conducted by an additional ED providers. TRAVEL OUTSIDE OF THE [place] IN LAST 30 DAYS: No - Related Data Allergies/Adverse Reactions: latex Allergy (Verified 04/21/20 00:19) No Known Drug Allergies Allergy (Verified 04/21/20 00:19) shellfish derived Allergy (Verified 04/21/20 00:19) Past Medical History Pulmonary Medical History: Reports: Hx Asthma, Hx Pneumonia Renal/ Medical History: Denies: Hx Peritoneal Dialysis Musculoskeltal Medical History: Reports Hx Arthritis, Reports Hx Musculoskeletal Deformity Past Surgical History: Reports: Hx Section, Hx Tubal Ligation - Immunizations Hx Diphtheria, Pertussis, Tetanus Vaccination: No Physical Exam - Vital signs Vitals: Temp Pulse Resp BP Pulse Ox 98.1 F 109 H 20 152/114 H 100 04/20/20 21:49 04/20/20 21:49 04/20/20 21:49 04/20/20 21:49 04/20/20 21:49 Course - Vital Signs Vital signs: Temp Pulse Resp BP Pulse Ox 98.5 F 109 H 18 149/111 H 105 H 04/21/20 00:01 04/20/20 21:49 04/21/20 00:01 04/21/20 00:01 04/21/20 00:15 - Laboratory Result Diagrams: 04/21/20 00:25 04/21/20 00:25 Doctor's Discharge - Discharge Referrals: BRIAN QUEEN MD [Primary Care Provider] - Follow up as needed
--- NOTE | 2020-04-20 22:51 | RADIOLOGY REPORT (SQ) ---
EXAM DESCRIPTION: X-RAY CHEST- TWO VIEWS CLINICAL HISTORY: Chest pain COMPARISON: December 03, 2019 TECHNIQUE: 2 views of the chest FINDINGS: There are no discrete air space infiltrates, pneumothoraces or pleural effusions. The pulmonary vascularity is normal. The cardiomediastinal silhouette is persistently enlarged. Osseous structures are stable. IMPRESSION: There are no acute lung parenchymal findings. Persistent enlargement of the cardiac silhouette.
[2020-04-21] MEDS ORDERED: NORMAL SALINE 1000 ML 1,000 ML IV ONE (00:24)
[2020-04-21 00:41] LABS: ABSOLUTE EOSINOPHILS # (AUTO) 0.1 10^3/uL (0.0-0.6); ABSOLUTE LYMPHOCYTES (AUTO) 2.3 10^3/uL (0.5-4.7); ABSOLUTE MONOCYTES (AUTO) 0.5 10^3/uL (0.1-1.4); ABSOLUTE NEUT (AUTO) 8.3 10^3/uL (1.7-8.2); BASOPHILS % (AUTO) 0.4 % (0-2); HEMATOCRIT 38.7 % (36.0-47.0); HEMOGLOBIN 12.6 g/dL (12.0-15.5); LYMPHOCYTES % (AUTO) 20.6 % (13-45); MEAN CORPUSCULAR HEMOGLOBIN 28.1 pg (27.0-33.4); MEAN CORPUSCULAR HGB CONC 32.5 g/dL (32.0-36.0); MEAN CORPUSCULAR VOLUME 86 fl (80-97); MONOCYTES % (AUTO) 4.3 % (3-13); PLATELET COUNT 388 10^3/uL (150-450); RED BLOOD COUNT 4.49 10^6/uL (3.72-5.28); RED CELL DISTRIBUTION WIDTH 15.2 % (11.5-14.0); SEGMENTED NEUTROPHILS % (AUTO) 73.7 % (42-78); TOTAL CELLS COUNTED % (AUTO) 100 %; WHITE BLOOD COUNT 11.3 10^3/uL (4.0-10.5)
[2020-04-21 00:45] LABS: INTERNATIONAL RATION (INR) 1.13; PROTHROMBIN TIME 14.7 SEC (11.4-15.4)
[2020-04-21 00:46] LABS: PARTIAL THROMBOPLASTIN TIME 28.2 SEC (23.5-35.8)
[2020-04-21 01:11] LABS: ALBUMIN 4.5 g/dL (3.5-5.0); ALKALINE PHOSPHATASE 70 U/L (38-126); ANION GAP 10 (5-19); ASPARTATE AMINO TRANSFERASE 37 U/L (14-36); BILIRUBIN,DIRECT 0.3 mg/dL (0.0-0.4); BILIRUBIN,TOTAL 0.6 mg/dL (0.2-1.3); BLOOD UREA NITROGEN 19 mg/dL (7-20); CALCIUM 9.4 mg/dL (8.4-10.2); CARBON DIOXIDE 21 mmol/L (22-30); CHLORIDE 109 mmol/L (98-107); GLUCOSE 88 mg/dL (75-110); POTASSIUM 4.4 mmol/L (3.6-5.0); TOTAL PROTEIN 7.3 g/dL (6.3-8.2)
[2020-04-21] MEDS ORDERED: PREDNISONE 20 MG TABLET PO ONE (01:17)
[2020-04-21] MEDS ORDERED: IPRATROPIUM/ALBUTEROL 0.5-2.5 MG/3 ML AMPUL NEB ONE (01:17)
[2020-04-21] MEDS ORDERED: KETOROLAC TROMETHAMINE INJ/PF 30 MG/1 ML SDV IV ONE (01:18)
--- NOTE | 2020-04-21 01:43 | ER Document Report ---
ED General - General Chief Complaint: Shortness Of Breath Stated Complaint: CHEST PAIN Time Seen by Provider: 04/20/20 21:39 Primary Care Provider: BRIAN QUEEN MD [Primary Care Provider] - Follow up as needed Mode of Arrival: Ambulatory Notes: 35-year-old female smoker with mild intermittent asthma presents with approximately 2 weeks of gradual onset worsening intermittent shortness of breath associated with mostly dry cough occasionally scantly productive of clear sputum and diffuse anterior aching chest pain that is brought on by cough. Patient has been using albuterol inhaler frequently which temporarily improve symptoms but then they return. Patient denies any recent steroids, prior asthma hospitalizations, prior intubations, fever, hemoptysis, lower extremity edema, r ecent travel/trauma/surgery/immobilization, DVT/PE/hypercoagulability history in self or family, cancer history, exogenous estrogen/recent , sick contacts, immunocompromise history, recent hospitalizations TRAVEL OUTSIDE OF THE [place] IN LAST 30 DAYS: No - Related Data Allergies/Adverse Reactions: latex Allergy (Verified 04/21/20 00:19) No Known Drug Allergies Allergy (Verified 04/21/20 00:19) shellfish derived Allergy (Verified 04/21/20 00:19) Home Medications: inhaler Past Medical History - General Information source: Patient - Social History Smoking Status: Current Every Day Smoker Family History: Arthritis, CAD, COPD, CVA, Hyperlipidemia, Hypertension, Malignancy. denies: Thyroid Disfunction Pulmonary Medical History: Reports: Hx Asthma, Hx Pneumonia Renal/ Medical History: Denies: Hx Peritoneal Dialysis Musculoskeletal Medical History: Reports Hx Arthritis, Reports Hx Musculoskeletal Deformity Past Surgical History: Reports: Hx Section, Hx Tubal Ligation - Immunizations Hx Diphtheria, Pertussis, Tetanus Vaccination: No Review of Systems - Review of Systems Notes: REVIEW OF SYSTEMS: CONSTITUTIONAL : Denies fever, chills, or sweats. EENT: Denies recent cold/sinus symptoms, denies throat pain CARDIOVASCULAR: + chest pain, -KARYNA RESPIRATORY: + cough, + shortness of breath. GASTROINTESTINAL: Denies abdominal pain, nausea/vomiting. GENITOURINARY: Denies difficulty urinating, painful urination. FEMALE GENITOURINARY: Denies abnormal vaginal bleeding, vaginal discharge. MUSCULOSKELETAL: Denies neck pain, back pain. SKIN: Denies rash or skin lesions. HEMATOLOGIC : Denies easy bruising or bleeding. LYMPHATIC: Denies swollen, enlarged glands. NEUROLOGICAL: Denies headache, denies change in gait. PSYCHIATRIC: Denies anxiety or stress or depression. Physical Exam - Vital signs Vitals: Temp Pulse Resp BP Pulse Ox 98.1 F 109 H 20 152/114 H 100 04/20/20 21:49 04/20/20 21:49 04/20/20 21:49 04/20/20 21:49 04/20/20 21:49 - Notes Notes: PHYSICAL EXAMINATION: GENERAL: Well-appearing, well-nourished mildly uncomfortable appearing young adult female sitting up in stretcher in no acute distress HEAD: Atraumatic, normocephalic. EYES: Pupils equal round and appropriate constriction, sclera anicteric, conjunctiva are normal. ENT: nares patent, mildly dry mucous membranes. NECK: Normal range of motion, supple without lymphadenopathy LUNGS: Breath sounds clear to auscultation bilaterally and equal, slightly prolonged expiratory phase, tachypneic, speaking in full sentences, no tripoding, managing secretions, no accessory muscle use HEART: Regular rate and rhythm without murmurs, rubs, or gallops ABDOMEN: Soft, nontender, no guarding, no masses, no CVAT EXTREMITIES: Normal range of motion, no pitting or edema. No cyanosis. No calf tenderness NEUROLOGICAL: Awake, alert, conversing appropriately, moves all extremities spontaneously. PSYCH: Normal mood, normal affect. SKIN: Warm, Dry, normal turgor, no rashes or lesions noted. Course - Re-evaluation Re-evalutation: 04/21/20 01:42 Presentation most likely secondary to cough variant asthma exacerbation, will rule out COVID-19, pneumonia, PE. Will obtain D-dimer as unable to use PERC criteria to rule out PE, patient is low risk but heart rate above 100. Left bundle branch block on EKG, Sgarbossa's negative and was present from prior EKG several months ago. Likely secondary to untreated hypertension. Informed patient of this finding and importance of outpatient follow-up with PCP and cardiology. Will obtain troponin rule out ACS, myocarditis, but low pretest probability. Will treat for asthma exacerbation, good pain control, hydration, and send Covid swab, and reevaluate. Likely DC with PCP and cardiology follow- up and quarantine precautions if patient tachypnea resolves and patient feels improved and no emergent findings on work-up. 04/21/20 06:54 Chest x-ray showed cardiomegaly and on CTA no PE was seen but does show signs of heart failure with fluid overload. Looking back at patient's prior visits she has only been mildly hypertensive for the past proximately 1 year and before that normal blood pressures, not clear that current symptoms are secondary to chronic hypertension. Could be secondary to COVID-19 or flu myocarditis, will need further work-up inpatient. Ordered patient initial dose of diuretic. Explained all findings to patient and answered all her questions. Patient's respiratory status remained stable. Discussed case with Dr. Porras who has accepted patient to telemetry observation and will turn over patient to the day hospitalist. Have also made Dr. Elliott aware of patient in case of any change in status. - Vital Signs Vital signs: Temp Pulse Resp BP Pulse Ox 98.5 F 109 H 18 149/111 H 105 H 04/21/20 00:01 04/20/20 21:49 04/21/20 00:01 04/21/20 00:01 04/21/20 00:15 - Laboratory Result Diagrams: 04/21/20 00:25 04/21/20 00:25 Laboratory results interpreted by me: 04/21/20 04/21/20 04/21/20 00:25 00:25 00:25 WBC 11.3 H RDW 15.2 H Absolute Neuts (auto) 8.3 H D-Dimer Chloride 109 H Carbon Dioxide 21 L AST 37 H ALT 37 H TSH 6.02 H 04/21/20 00:25 WBC RDW Absolute Neuts (auto) D-Dimer 0.53 H Chloride Carbon Dioxide AST ALT TSH - EKG Interpretation by Me Additional EKG results interpreted by me: 04/21/20 01:45 Heart rate 114, sinus tachycardia, left bundle branch block unchanged from prior EKG, Sgarbossa's negative Discharge - Discharge Clinical Impression: New onset of congestive heart failure Disposition: ADMITTED OBSERVATION Admitting Provider: - [facility] Admitted: Telemetry Referrals: BRIAN QUEEN MD [Primary Care Provider] - Follow up as needed
--- NOTE | 2020-04-21 06:05 | RADIOLOGY REPORT (SQ) ---
CT angiogram chest with contrast on 04/21/2020 at 3:54 AM CLINICAL INDICATION: Shortness of breath, tachycardia, elevated d-dimer TECHNIQUE: Multiple axial images are obtained throughout the chest following the administration of IV contrast. Computer generated 3D reconstructions/MIPS were performed. This exam was performed according to our departmental dose-optimization program, which includes automated exposure control, adjustment of the mA and/or kV according to patient size and/or use of iterative reconstruction technique. Total DLP is 859.12 mGy*cm. COMPARISON: 12/03/2019 FINDINGS: Cardiomegaly is noted. There is a trace right pleural effusion. No left pleural effusion or pericardial effusion is noted. There is reflux of contrast into the IVC and hepatic veins indicating elevated right heart pressure. Periportal edema is noted in the liver. Visualized upper abdomen is otherwise unremarkable. There is no thoracic adenopathy. There are no filling defects within the pulmonary arteries to suggest pulmonary embolus. Bilateral septal thickening is noted consistent with mild interstitial edema. Breathing motion limits some of the exam. There is minimal bilateral dependent atelectasis. The lungs are otherwise clear. No bony abnormality is noted. IMPRESSION: 1. Findings most consistent with very mild changes of CHF. 2. No evidence of pulmonary embolus.
[2020-04-21] MEDS ORDERED: FUROSEMIDE INJ/PF 40 MG/4 ML SDV IV ONE ×2 (06:49→10:00)
--- NOTE | 2020-04-21 07:07 | ER Document Report ---
ED General - General Chief Complaint: Shortness Of Breath Stated Complaint: CHEST PAIN Time Seen by Provider: 04/20/20 21:39 Primary Care Provider: BRIAN QUEEN MD [Primary Care Provider] - Follow up as needed Mode of Arrival: Ambulatory Notes: 35-year-old female history of smild intermittent asthma presents with approximately 2 weeks of shortness of breath gradual onset gradually worsening exacerbated by exertion. Patient says she cannot walk to the bathroom without feeling significantly short of breath. Has had a mostly dry cough occasionally productive of clear sputum and diffuse chest discomfort when she is coughing but no exertional chest pain. Patient has been taking albuterol inhaler with minimal relief with prompting her to present to the emergency department. Pat ient denies any fever, recent steroids, prior medical evaluation for current symptoms, cardiac history, hypertension, hyperlipidemia, diabetes, TRAVEL OUTSIDE OF THE [place] IN LAST 30 DAYS: No - Related Data Allergies/Adverse Reactions: latex Allergy (Verified 04/21/20 00:19) No Known Drug Allergies Allergy (Verified 04/21/20 00:19) shellfish derived Allergy (Verified 04/21/20 00:19) Home Medications: inhaler Past Medical History - General Information source: Patient - Social History Smoking Status: Current Every Day Smoker Family History: Arthritis, CAD, COPD, CVA, Hyperlipidemia, Hypertension, Malignancy. denies: Thyroid Disfunction Pulmonary Medical History: Reports: Hx Asthma, Hx Pneumonia Renal/ Medical History: Denies: Hx Peritoneal Dialysis Musculoskeletal Medical History: Reports Hx Arthritis, Reports Hx Musculoskeletal Deformity Past Surgical History: Reports: Hx Section, Hx Tubal Ligation - Immunizations Hx Diphtheria, Pertussis, Tetanus Vaccination: No Physical Exam - Vital signs Vitals: Temp Pulse Resp BP Pulse Ox 98.1 F 109 H 20 152/114 H 100 04/20/20 21:49 04/20/20 21:49 04/20/20 21:49 04/20/20 21:49 04/20/20 21:49 Course - Vital Signs Vital signs: Temp Pulse Resp BP Pulse Ox 98.5 F 109 H 18 149/111 H 105 H 04/21/20 00:01 04/20/20 21:49 04/21/20 00:01 04/21/20 00:01 04/21/20 00:15 - Laboratory Result Diagrams: 04/21/20 00:25 04/21/20 00:25 Laboratory results interpreted by me: 04/21/20 04/21/20 04/21/20 00:25 00:25 00:25 WBC 11.3 H RDW 15.2 H Absolute Neuts (auto) 8.3 H D-Dimer Chloride 109 H Carbon Dioxide 21 L AST 37 H ALT 37 H TSH 6.02 H 04/21/20 00:25 WBC RDW Absolute Neuts (auto) D-Dimer 0.53 H Chloride Carbon Dioxide AST ALT TSH Discharge - Discharge Referrals: BRIAN QUEEN MD [Primary Care Provider] - Follow up as needed
[2020-04-21] MEDS ORDERED: ACETAMINOPHEN 325 MG TABLET PO PRN (09:00)
[2020-04-21] MEDS ORDERED: MAG HYDROX/AL HYDROX/SIMETH SUSP 30 ML UDCUP PO PRN (09:00)
[2020-04-21] MEDS ORDERED: ALBUTEROL SULFATE HFA (90 MCG/PUFF) 8 GM MDI IH PRN (09:08)
[2020-04-21 10:08] LABS: FREE T3 4.35 pg/mL (2.77-5.27); FREE T4 (FREE THYROXINE) 1.31 ng/dL (0.78-2.19)
[2020-04-21] MEDS: ASPIRIN 81 MG TABLET, ENT COATED PO SCH (10:39)
[2020-04-21] MEDS: ENOXAPARIN SODIUM INJ 40 MG/0.4 ML DISP.SYRIN SUBCUT SCH (10:41)
[2020-04-21] MEDS: CARVEDILOL 12.5 MG TABLET PO SCH ×2 (10:50→21:09)
[2020-04-21] MEDS: LOSARTAN POTASSIUM 25 MG TABLET PO SCH (10:50)
[2020-04-21 11:20] LABS: A TYPE INFLUENZA AG NEGATIVE (NEGATIVE); B INFLUENZA AG NEGATIVE (NEGATIVE)
[2020-04-21] MEDS: FUROSEMIDE INJ/PF 20 MG/2 ML SDV IV SCH ×2 (15:44→21:09)
[2020-04-21] MEDS ORDERED: DIPHENHYDRAMINE HCL 25 MG CAPSULE PO PRN (16:39)
--- NOTE | 2020-04-21 16:51 | PDOC H&P ---
History of Present Illness Admission Date/PCP: 04/21/20 10:27 BRIAN QUEEN MD Patient complains of: dyspnea History of Present Illness: SUNI KENNEDY is a 35 year old female with a past medical history significant for hypertension, asthma, LBBB, obesity, and tobacco dependence with continuous use who presented to the emergency department today with a complaint of progressively worsening dyspnea over the last 2 weeks. Patient reports that she is now unable to walk more than 15 to 20 feet without becoming short of breath and needing to rest to recover. She also reports significant paroxysmal nocturnal dyspnea; unable to sleep lying flat and is typically sitting up in the chair in order to rest. She also notes that she believes that her asthma sympt oms have become increasingly uncontrolled with rescue inhaler use 2-3 times daily over the last few months. She also admits that she has been treated for pneumonia twice in the last year. Evaluation in the emergency department revealed hypertension, Tachypnea, hypoxia, mild leukocytosis (WBC 11.3) mildly elevated D-dimer (0.53), and chemistry notable for a proBNP of 2370. Troponin negative. Influenza negative. COVID-19 testing pending. Chest x-ray revealed enlarged cardiac silhouette but negative for acute findings. Chest CTA was consistent with mild changes of CHF; negative for pulmonary embolus. EKG revealed left bundle branch block which has been present since February 2019. She was initially provided IV fluids but then provided furosemide. She is now referred to the hospitalist service for admission management of stay complaints and findings. Past Medical History Cardiac Medical History: Reports: Hypertension Denies: Congestive Heart Failure, Coronary Artery Disease, Myocardial Infarction, Hyperlipidema Pulmonary Medical History: Reports: Asthma, Pneumonia Denies: Chronic Obstructive Pulmonary Disease (COPD) EENT Medical History: Reports: None Neurological Medical History: Reports: None Endocrine Medical History: Reports: Obesity Renal/ Medical History: Reports: None Malignancy Medical History: Reports: None GI Medical History: Reports: None Musculoskeltal Medical History: Reports: Arthritis Skin Medical History: Reports: None Psychiatric Medical History: Reports: Tobacco Dependency Denies: Depression Traumatic Medical History: Reports: None Hematology: Reports: None Infectious Medical History: Reports: None Past Surgical History Past Surgical History: Reports: Section, Tubal Ligation Social History Information Source: Patient Lives with: Family Smoking Status: Current Every Day Smoker Cigarettes Packs Per Day: 1 Frequency of Alcohol Use: None Hx Recreational Drug Use: No Drugs: None - Advance Directive Resuscitation Status: Full Code Family History Family History: Arthritis, CAD, COPD, CVA, Hyperlipidemia, Hypertension, Malignancy. denies: Thyroid Disfunction Parental Family History Reviewed: Yes Children Family History Reviewed: Yes Sibling(s) Family History Reviewed.: Yes Medication/Allergy Home Medications: Albuterol Sulfate [Ventolin Hfa 8 gm Mdi] 2 puff IH Q4HP PRN 04/21/20 Diphenhydramine HCl [Benadryl 25 mg Capsule] 25 mg PO HSP PRN 04/21/20 Allergies/Adverse Reactions: latex Allergy (Verified 04/21/20 00:19) No Known Drug Allergies Allergy (Verified 04/21/20 00:19) shellfish derived Allergy (Verified 04/21/20 00:19) Review of Systems Constitutional: PRESENT: fatigue. ABSENT: chills, fever(s), headache(s), weight gain, weight loss Eyes: ABSENT: visual disturbances Ears: ABSENT: hearing changes Cardiovascular: PRESENT: dyspnea on exertion, orthropnea. ABSENT: chest pain, edema, palpitations Respiratory: PRESENT: cough. ABSENT: hemoptysis Gastrointestinal: ABSENT: abdominal pain, constipation, diarrhea, hematemesis, hematochezia, nausea, vomiting Genitourinary: ABSENT: dysuria, hematuria Musculoskeletal: ABSENT: joint swelling Integumentary: ABSENT: rash, wounds Neurological: ABSENT: abnormal gait, abnormal speech, confusion, dizziness, focal weakness, syncope Psychiatric: ABSENT: anxiety, depression, homidical ideation, suicidal ideation Endocrine: ABSENT: cold intolerance, heat intolerance, polydipsia, polyuria Hematologic/Lymphatic: ABSENT: easy bleeding, easy bruising Physical Exam Vital Signs: Temp Pulse Resp BP Pulse Ox 97.8 F 90 17 127/83 H 100 04/21/20 15:39 04/21/20 15:39 04/21/20 15:39 04/21/20 15:39 04/21/20 15:39 Intake & Output 04/20/20 04/21/20 04/22/20 06:59 06:59 06:59 Intake Total 1000 Balance 1000 Weight 98.8 kg 96.7 kg General appearance: PRESENT: no acute distress, cooperative, obese, well- developed, well-nourished Head exam: PRESENT: atraumatic, normocephalic Eye exam: PRESENT: conjunctiva pink, EOMI, PERRLA. ABSENT: scleral icterus Mouth exam: PRESENT: moist, tongue midline Neck exam: ABSENT: carotid bruit, JVD, lymphadenopathy, thyromegaly Respiratory exam: PRESENT: clear to auscultation keysha, symmetrical, unlabored, other - Room air. ABSENT: rales, rhonchi, wheezes Cardiovascular exam: PRESENT: RRR. ABSENT: diastolic murmur, rubs, systolic murmur Pulses: PRESENT: normal dorsalis pedis pul Vascular exam: PRESENT: normal capillary refill GI/Abdominal exam: PRESENT: normal bowel sounds, soft. ABSENT: distended, guarding, mass, organolmegaly, rebound, tenderness Rectal exam: PRESENT: deferred Extremities exam: PRESENT: full ROM. ABSENT: calf tenderness, clubbing, pedal edema, +1 edema Musculoskeletal exam: PRESENT: ambulatory Neurological exam: PRESENT: alert, awake, oriented to person, oriented to place, oriented to time, oriented to situation, CN II-XII grossly intact. ABSENT: motor sensory deficit Psychiatric exam: PRESENT: appropriate affect, normal mood. ABSENT: homicidal ideation, suicidal ideation Skin exam: PRESENT: dry, intact, warm. ABSENT: cyanosis, rash Results Laboratory Results: 04/21/20 00:25 04/21/20 00:25 04/21/20 04/21/20 04/21/20 00:25 00:25 00:25 WBC 11.3 H RBC 4.49 Hgb 12.6 Hct 38.7 MCV 86 MCH 28.1 MCHC 32.5 RDW 15.2 H Plt Count 388 Seg Neutrophils % 73.7 Sodium 140.1 Potassium 4.4 Chloride 109 H Carbon Dioxide 21 L Anion Gap 10 BUN 19 Creatinine 0.96 Est GFR ( Amer) > 60 Glucose 88 Calcium 9.4 Magnesium 2.3 Total Bilirubin 0.6 AST 37 H Alkaline Phosphatase 70 Total Protein 7.3 Albumin 4.5 TSH 6.02 H Free T4 Free T3 pg/mL Serum HCG, Qual 04/21/20 04/21/20 00:25 00:25 WBC RBC Hgb Hct MCV MCH MCHC RDW Plt Count Seg Neutrophils % Sodium Potassium Chloride Carbon Dioxide Anion Gap BUN Creatinine Est GFR ( Amer) Glucose Calcium Magnesium Total Bilirubin AST Alkaline Phosphatase Total Protein Albumin TSH Free T4 1.31 Free T3 pg/mL 4.35 Serum HCG, Qual NEGATIVE 04/21/20 04/21/20 00:25 00:25 Troponin I 0.020 NT-Pro-B Natriuret Pep 2370 H Impressions: Chest X-Ray 04/20/20 21:44 IMPRESSION: There are no acute lung parenchymal findings. Persistent enlargement of the cardiac silhouette. Chest/Abdomen CTA 04/21/20 02:14 IMPRESSION: 1. Findings most consistent with very mild changes of CHF. 2. No evidence of pulmonary embolus. Assessment and Plan - Diagnosis (1) New onset of congestive heart failure Is this a current diagnosis for this admission?: Yes Plan: Echocardiogram pending Patient is admitted to medical floor on continuous cardiac telemetry. She is placed on losartan and carvedilol Daily aspirin and statin therapy Diuresed with IV furosemide Cardiology consulted Cardiac diet, fluid restriction Daily weights, strict I&O's (2) Hypertension Is this a current diagnosis for this admission?: Yes Plan: Patient was noted to be hypertensive on arrival with blood pressures 152/114 Discussed with cardiology; she will initially be placed on losartan and carvedilol Diurese with IV furosemide Cardiac diet (3) Left bundle branch block Is this a current diagnosis for this admission?: Yes Plan: Present since February 2019 Patient denies prior cardiac work-up. We will monitor on telemetry. Troponin negative proBNP elevated to cage She is placed on daily aspirin and statin therapy. Cardiology consulted. (4) Obesity Qualifiers: Obesity type: due to excess calories Body mass index: BMI 33.0-33.9 Is this a current diagnosis for this admission?: Yes Plan: BMI 33.4 Lifestyle modification dietary discretion advised. Cardiac diet (5) Tobacco dependence Is this a current diagnosis for this admission?: Yes Plan: Smoking cessation encouraged Nicotine replacement therapies provided - Time Time Spent with patient: 35 or more minutes Medications reviewed and adjusted accordingly: Yes Anticipated Discharge Disposition: Home, Self Care Anticipated Discharge Timeframe: within 48 hours
--- NOTE | 2020-04-21 19:15 | EKG REPORT ---
SEVERITY:- ABNORMAL ECG - SINUS TACHYCARDIA PROBABLE LEFT ATRIAL ABNORMALITY LEFT BUNDLE BRANCH BLOCK : Confirmed by: Gerald Haynes MD 21-Apr-2020 19:14:38
--- NOTE | 2020-04-21 20:15 | EKG REPORT ---
SEVERITY:- ABNORMAL ECG - SINUS TACHYCARDIA LEFT BUNDLE BRANCH BLOCK : Confirmed by: Gerald Haynes MD 21-Apr-2020 20:14:40
[2020-04-22] MEDS: FUROSEMIDE INJ/PF 20 MG/2 ML SDV IV SCH ×3 (06:08→22:24)
[2020-04-22 06:42] LABS: HEMATOCRIT 35.4 % (36.0-47.0); HEMOGLOBIN 11.6 g/dL (12.0-15.5); MEAN CORPUSCULAR HEMOGLOBIN 28.2 pg (27.0-33.4); MEAN CORPUSCULAR HGB CONC 32.8 g/dL (32.0-36.0); MEAN CORPUSCULAR VOLUME 86 fl (80-97); PLATELET COUNT 345 10^3/uL (150-450); RED BLOOD COUNT 4.12 10^6/uL (3.72-5.28); RED CELL DISTRIBUTION WIDTH 15.1 % (11.5-14.0); WHITE BLOOD COUNT 12.3 10^3/uL (4.0-10.5)
[2020-04-22 07:06] LABS: ANION GAP 12 (5-19); BLOOD UREA NITROGEN 15 mg/dL (7-20); CALCIUM 8.8 mg/dL (8.4-10.2); CARBON DIOXIDE 21 mmol/L (22-30); CHLORIDE 106 mmol/L (98-107); CHOLESTEROL 143.31 mg/dL (0-200); GLUCOSE 100 mg/dL (75-110); POTASSIUM 4.1 mmol/L (3.6-5.0); TRIGLYCERIDES 81 mg/dL (<150)
[2020-04-22 07:17] LABS: DIRECT LDL 111 mg/dL (<100)
--- NOTE | 2020-04-22 10:12 | PDOC CONSULTATION ---
Consultation Consult Date: 04/22/20 Provider Consulted: ROBEL ARRINGTON Consult reason:: Congestive heart failure History of Present Illness Admission Date/PCP: 04/21/20 10:27 BRIAN QUEEN MD Patient complains of: Dyspnea History of Present Illness: SUNI KENNEDY is a 35 year old female Who has been admitted with signs and symptoms suggestive of acute decompensated congestive heart failure Patient has been using her inhaler heavily activating her symptoms to worsening asthma. It appears that she had multiple episodes similar to this previously. No prior cardiac diagnosis has been established. Patient does not report systemic hypertension. She is not aware of any cardiac issues whatsoever. EKGs in the hospital system demonstrate that she has had a chronic left bundle branch block. No chest pain is reported. Since admission to the hospital she feels much be tter. There is family history of heart problems. Her father has an implanted cardiac device. Further details not clear Patient smokes cigarettes on a daily basis she is down to 3 to 4 cigarettes/day. She smoked most of her adult life. No use of cocaine marijuana methamphetamines. No alcohol use on a heavy basis. She is unemployed. Review of systems is positive for dyspnea, PND, orthopnea. Full 11 review of systems was asked. Pertinent positives noted here and in the HPI all other systems are negative. Past Medical History Cardiac Medical History: Reports: Hypertension Denies: Congestive Heart Failure, Coronary Artery Disease, Myocardial Infar ction, Hyperlipidema Pulmonary Medical History: Reports: Asthma, Pneumonia Denies: Chronic Obstructive Pulmonary Disease (COPD) EENT Medical History: Reports: None Neurological Medical History: Reports: None Endocrine Medical History: Reports: Obesity Renal/ Medical History: Reports: None Malignancy Medical History: Reports: None GI Medical History: Reports: None Musculoskeltal Medical History: Reports: Arthritis Skin Medical History: Reports: None Psychiatric Medical History: Reports: Tobacco Dependency Denies: Depression, Substance Abuse Traumatic Medical History: Reports: None Hematology: Reports: None Infectious Medical History: Reports: None Past Surgical History Past Surgical History: Reports: Section, Tubal Ligation Social History Lives with: Family Smoking Status: Current Every Day Smoker Cigarettes Packs Per Day: 1 Frequency of Alcohol Use: None Hx Recreational Drug Use: No Drugs: None - Advance Directive Resuscitation Status: Full Code Family History Family History: Arthritis, CAD, COPD, CVA, Hyperlipidemia, Hypertension, Malignancy. denies: Thyroid Disfunction Parental Family History Reviewed: Yes - Family history of heart problems reported. Further details are not forthco Children Family History Reviewed: NA Sibling(s) Family History Reviewed.: NA Medication/Allergy Home Medications: Albuterol Sulfate [Ventolin Hfa 8 gm Mdi] 2 puff IH Q4HP PRN 04/21/20 Diphenhydramine HCl [Benadryl 25 mg Capsule] 25 mg PO HSP PRN 04/21/20 Allergies/Adverse Reactions: latex Allergy (Verified 04/21/20 00:19) No Known Drug Allergies Allergy (Verified 04/21/20 00:19) shellfish derived Allergy (Verified 04/21/20 00:19) Review of Systems Constitutional: ABSENT: as per HPI, anorexia, chills, fatigue, fever(s), headache(s), night sweats, weakness, weight gain, weight loss, other Eyes: ABSENT: as per HPI, visual disturbances, other Cardiovascular: PRESENT: dyspnea on exertion, edema, orthropnea Respiratory: PRESENT: dyspnea Gastrointestinal: ABSENT: as per HPI, abdominal pain, bloating, coffee ground emesis, constipation, diarrhea, dysphagia, heartburn, hematemesis, hematochezia, melena, nausea, vomiting, other Genitourinary: ABSENT: as per HPI, difficulty urinating, dysuria, hematuria, nocturia, other Endocrine: ABSENT: as per HPI, cold intolerance, flushing, heat intolerance, menstrual abnormalities, polydipsia, polyphagia, polyuria, other Physical Exam Vital Signs: Temp Pulse Resp BP Pulse Ox 97.7 F 64 19 115/68 100 04/22/20 08:27 04/22/20 08:27 04/22/20 08:27 04/22/20 08:27 04/22/20 08:27 Intake & Output 04/21/20 04/22/20 04/23/20 06:59 06:59 06:59 Intake Total 1000 900 Output Total 1975 Balance 1000 -1075 Weight 98.8 kg 98.9 kg General appearance: PRESENT: no acute distress, cooperative, obese, well- developed, well-nourished Head exam: PRESENT: atraumatic, normocephalic Eye exam: PRESENT: conjunctiva pink, EOMI Mouth exam: PRESENT: moist Respiratory exam: PRESENT: decreased breath sounds, symmetrical Cardiovascular exam: PRESENT: RRR, +S1, +S2, systolic murmur Pulses: PRESENT: normal radial pulses GI/Abdominal exam: PRESENT: soft Rectal exam: PRESENT: deferred Neurological exam: PRESENT: alert, awake, oriented to person, oriented to place, oriented to time, oriented to situation Psychiatric exam: PRESENT: appropriate affect Skin exam: PRESENT: dry, intact, normal color Results Laboratory Results: 04/22/20 06:14 04/22/20 06:14 04/21/20 04/22/20 04/22/20 00:25 06:14 06:14 WBC 12.3 H RBC 4.12 Hgb 11.6 L Hct 35.4 L MCV 86 MCH 28.2 MCHC 32.8 RDW 15.1 H Plt Count 345 Sodium 138.8 Potassium 4.1 Chloride 106 Carbon Dioxide 21 L Anion Gap 12 BUN 15 Creatinine 0.82 Est GFR ( Amer) > 60 Glucose 100 Calcium 8.8 Triglycerides 81 Cholesterol 143.31 LDL Cholesterol Direct 111 H VLDL Cholesterol 16.0 HDL Cholesterol 26 L Free T4 1.31 Free T3 pg/mL 4.35 04/21/20 04/21/20 04/21/20 00:25 00:25 19:40 Troponin I 0.020 0.013 NT-Pro-B Natriuret Pep 2370 H 04/22/20 06:14 Troponin I 0.014 NT-Pro-B Natriuret Pep EKG Comments: Twelve-lead EKG 04/21/2020. 2007 Independently viewed by me Sinus tachycardia 102 beats minute, left bundle branch block, QRS duration 144 ms Chest abdomen CTA 04/21/2020 Mild changes of congestive heart failure no pulmonary embolus Chest x-ray 04/20/2020. Persistent enlargement of cardiac silhouette no acute lung findings COVID-19 not detected Serum creatinine 0.82 BNP 2370 Cardiac troponin 0.02 0.013 0.014 Impressions: Chest X-Ray 04/20/20 21:44 IMPRESSION: There are no acute lung parenchymal findings. Persistent enlargement of the cardiac silhouette. Chest/Abdomen CTA 04/21/20 02:14 IMPRESSION: 1. Findings most consistent with very mild changes of CHF. 2. No evidence of pulmonary embolus. Assessment & Plan - Diagnosis (1) Hypertension Is this a current diagnosis for this admission?: Yes Plan: Watch blood pressure I discussed salt avoidance. Agree with present therapy. (2) New onset of congestive heart failure Is this a current diagnosis for this admission?: Yes Plan: Findings suggestive of new onset congestive heart failure With presence of left bundle branch block structural heart disease especially dilated cardiomyopathy has to be excluded Echocardiogram is pending at this time. Team is initiated medications for congestive heart failure with good improvement clinically. Have to watch fluid input and output. Strict salt avoidance was discussed. (3) Tobacco dependence Is this a current diagnosis for this admission?: Yes Plan: Patient was counseled regarding cessation of this habit. Detrimental effects on overall and cardiovascular health were discussed. Total time spent was 4 minutes. (4) Left bundle branch block Is this a current diagnosis for this admission?: Yes Plan: Manifest left bundle branch block. Chronic We will await echocardiogram.
[2020-04-22] MEDS: ENOXAPARIN SODIUM INJ 40 MG/0.4 ML DISP.SYRIN SUBCUT SCH (10:42)
[2020-04-22] MEDS: LOSARTAN POTASSIUM 25 MG TABLET PO SCH (10:43)
[2020-04-22] MEDS: ASPIRIN 81 MG TABLET, ENT COATED PO SCH (10:43)
[2020-04-22] MEDS: CARVEDILOL 12.5 MG TABLET PO SCH ×2 (10:43→22:24)
[2020-04-22] MEDS: NICOTINE 21 MG/24 HR PATCH.TD24 TD SCH (10:45)
--- NOTE | 2020-04-22 14:13 | PDOC PROGRESS REPORT ---
Subjective Progress Note for:: 04/22/20 Subjective:: SUNI KENNEDY is a 35 year old female with a past medical history significant for hypertension, asthma, LBBB, obesity, and tobacco dependence with continuous use who was admitted 04/21/2020 with new diagnosis CHF, hypertension, and left bundle branch block. Patient was seen on afternoon rounds. She is found resting in bed, comfortably, on room air. She reports that she is feeling much better and is hopeful to discharge home soon. She reports that she does continue to have shortness of breath with minimal exertion (ambulating to the restroom) and some orthopnea, however, both of these are improved from yesterday. She denies fever, chills, chest pain, palpitations, abdominal pain, nausea vomiting and diarrhea. She has no questions or concerns at this time. No concerns per nursing. Reason For Visit: HEART FAILURE Physical Exam Vital Signs: Temp Pulse Resp BP Pulse Ox 97.5 F 87 18 107/71 100 04/22/20 12:11 04/22/20 12:11 04/22/20 12:11 04/22/20 12:11 04/22/20 12:11 Intake & Output 04/21/20 04/22/20 04/23/20 06:59 06:59 06:59 Intake Total 1000 900 775 Output Total 1975 Balance 1000 -1075 775 Weight 98.8 kg 98.9 kg 98.9 kg General appearance: PRESENT: no acute distress, cooperative, obese, well- developed, well-nourished Head exam: PRESENT: atraumatic, normocephalic Eye exam: PRESENT: conjunctiva pink, EOMI, PERRLA. ABSENT: scleral icterus Mouth exam: PRESENT: moist, tongue midline Respiratory exam: PRESENT: clear to auscultation keysha, symmetrical, unlabored, wheezes. ABSENT: rales, rhonchi Cardiovascular exam: PRESENT: RRR. ABSENT: diastolic murmur, rubs, systolic murmur Pulses: PRESENT: normal dorsalis pedis pul Vascular exam: PRESENT: normal capillary refill Extremities exam: PRESENT: full ROM. ABSENT: calf tenderness, clubbing, pedal edema Musculoskeletal exam: PRESENT: ambulatory - Excuse me thank you Neurological exam: PRESENT: alert, awake, oriented to person, oriented to place, oriented to time, oriented to situation, CN II-XII grossly intact. ABSENT: motor sensory deficit Psychiatric exam: PRESENT: appropriate affect, normal mood. ABSENT: homicidal ideation, suicidal ideation Skin exam: PRESENT: dry, intact, warm. ABSENT: cyanosis, rash Results Laboratory Results: 04/22/20 06:14 04/22/20 06:14 04/22/20 04/22/20 06:14 06:14 WBC 12.3 H RBC 4.12 Hgb 11.6 L Hct 35.4 L MCV 86 MCH 28.2 MCHC 32.8 RDW 15.1 H Plt Count 345 Sodium 138.8 Potassium 4.1 Chloride 106 Carbon Dioxide 21 L Anion Gap 12 BUN 15 Creatinine 0.82 Est GFR ( Amer) > 60 Glucose 100 Calcium 8.8 Triglycerides 81 Cholesterol 143.31 LDL Cholesterol Direct 111 H VLDL Cholesterol 16.0 HDL Cholesterol 26 L 04/21/20 04/21/20 04/21/20 00:25 00:25 19:40 Troponin I 0.020 0.013 NT-Pro-B Natriuret Pep 2370 H 04/22/20 06:14 Troponin I 0.014 NT-Pro-B Natriuret Pep Impressions: Chest X-Ray 04/20/20 21:44 IMPRESSION: There are no acute lung parenchymal findings. Persistent enlargement of the cardiac silhouette. Chest/Abdomen CTA 04/21/20 02:14 IMPRESSION: 1. Findings most consistent with very mild changes of CHF. 2. No evidence of pulmonary embolus. Assessment and Plan - Diagnosis (1) New onset of congestive heart failure Is this a current diagnosis for this admission?: Yes Plan: Echocardiogram pending Patient is admitted to medical floor on continuous cardiac telemetry. She is placed on losartan and carvedilol Daily aspirin and statin therapy Diuresed with IV furosemide Cardiology consulted Cardiac diet, fluid restriction Daily weights, strict I&O's (2) Hypertension Is this a current diagnosis for this admission?: Yes Plan: Currently well controlled Patient was noted to be hypertensive on arrival with blood pressures 152/114 Discussed with cardiology; she will initially be placed on losartan and carvedilol Diurese with IV furosemide Cardiac diet (3) Left bundle branch block Is this a current diagnosis for this admission?: Yes Plan: Present since February 2019 Patient denies prior cardiac work-up. We will monitor on telemetry. Troponin negative proBNP elevated to cage She is placed on daily aspirin and statin therapy. Cardiology consulted. (4) Obesity Qualifiers: Obesity type: due to excess calories Body mass index: BMI 33.0-33.9 Is this a current diagnosis for this admission?: Yes Plan: BMI 33.4 Lifestyle modification dietary discretion advised. Cardiac diet (5) Tobacco dependence Is this a current diagnosis for this admission?: Yes Plan: Smoking cessation encouraged Nicotine replacement therapies provided - Time Time Spent with patient: 25-34 minutes Medications reviewed and adjusted accordingly: Yes Anticipated Discharge Disposition: Home, Self Care Anticipated Discharge Timeframe: within 24 hours - Pending cardiology clearance
--- NOTE | 2020-04-22 19:13 | XCELERA REPORT ---
[address] [address] Transthoracic Echocardiogram Report Name: SUNI KENNEDY Age: 35 yrs Gender: Female : 1985 Patient Status: Inpatient Patient Location: [address] [place], [place] [id number] Study Date: 04/22/2020 10:36 AM History: CHF LBBB Height: 67 in Weight: 217 lb BSA: 2.1 m2 Procedure: A complete two-dimensional transthoracic echocardiogram was performed (2D, M-mode, spectral and color flow Doppler). The study was technically adequate with some images being suboptimal in quality. Reason For Study: new onset CHF Previous Evaluation: No previous studies were available. Ordering Physician: DOMENICA RAO Performed By: Manpreet Jang Interpretation Summary Left ventricular systolic function is moderate to severely reduced. The Ejection Fraction estimate is 20-25% The right ventricular systolic function is mildly reduced. There is a mild to moderate amount of mitral regurgitation There is no aortic valve stenosis There is a moderate amount of tricuspid regurgitation There is mild to moderate pulmonary hypertension by echo Minimal pericardial effusion. MMode/2D Measurements & Calculations RVDd: 2.9 cm LVIDd: 6.0 cm FS: 12.1 % Ao root diam: 2.8 cm IVSd: 0.99 cm LVIDs: 5.3 cm EDV(Teich): LVPWd: 1.0 cm 178.6 ml Ao root area: ESV(Teich): 6.0 cm2 132.8 ml LA dimension: EF(Teich): 25.6 % 4.3 cm LVLd ap4: 8.2 cm SV(MOD-sp4): EDV(MOD-sp4): 39.0 ml 138.0 ml LVLs ap4: 7.9 cm ESV(MOD-sp4): 99.0 ml EF(MOD-sp4): 28.3 % Doppler Measurements & Calculations MV E max mumtaz: MV P1/2t max mumtaz: Ao V2 max: LV V1 max P.9 cm/sec 119.9 cm/sec 86.3 cm/sec 1.3 mmHg MV A max mumtaz: MV P1/2t: 61.6 msec Ao max PG: LV V1 max: 63.9 cm/sec MVA(P1/2t): 3.6 cm2 3.0 mmHg 57.7 cm/sec MV E/A: 1.9 MV dec slope: LV dP/dt: 505.0 mmHg/s 570.5 cm/sec2 MV dec time: 0.13 sec PA V2 max: PI end-d mumtaz: TR max mumtaz: MV P1/2t-pr_phl: 73.3 cm/sec 157.5 cm/sec 268.6 cm/sec 61.6 msec PA max P.1 mmHg TR max P.9 mmHg Left Ventricle The left ventricle is mildly to moderately dilated. There is mild concentric left ventricular hypertrophy. Left ventricular systolic function is moderate to severely reduced. The Ejection Fraction estimate is 20-25%. Doppler measurements suggest reversible restrictive left ventricular relaxation, which is associated with grade III/IV or moderate diastolic dysfunction. There is moderate to severe global hypokinesis of the left ventricle. Right Ventricle The right ventricle is mildly dilated. The right ventricular systolic function is mildly reduced. Atria The right atrium is mildly dilated. The left atrium is mildly dilated. The interatrial septum is intact with no evidence for an atrial septal defect. There is no Doppler evidence for an interatrial shunt. Mitral Valve The mitral valve is grossly normal. There is no mitral valve stenosis. There is a mild to moderate amount of mitral regurgitation. Aortic Valve The aortic valve is trileaflet. The aortic valve is normal in structure and function. The aortic valve opens well. There is no aortic valve stenosis. No aortic regurgitation is present. Tricuspid Valve The tricuspid valve is normal in structure and function. There is no tricuspid stenosis. There is a moderate amount of tricuspid regurgitation. Right ventricular systolic pressure is estimated to be elevated at 40-50mmHg. There is mild to moderate pulmonary hypertension by echo. Pulmonic Valve The pulmonic valve is normal in structure and function. There is no pulmonic valvular stenosis. There is a mild amount of pulmonic regurgitation. Great Vessels The aortic root is normal size. The inferior vena cava appeared dilated and decreased < 50% with respiration (RAP 15-20 mmHg). Effusions Minimal pericardial effusion. : DOMENICA RAO Anil
[2020-04-23] MEDS: FUROSEMIDE INJ/PF 20 MG/2 ML SDV IV SCH ×2 (05:38→13:09)
[2020-04-23 06:46] LABS: HEMOGLOBIN 13.4 g/dL (12.0-15.5); MEAN CORPUSCULAR HGB CONC 32.7 g/dL (32.0-36.0); MEAN CORPUSCULAR VOLUME 86 fl (80-97); PLATELET COUNT 375 10^3/uL (150-450); RED BLOOD COUNT 4.79 10^6/uL (3.72-5.28); RED CELL DISTRIBUTION WIDTH 14.7 % (11.5-14.0); WHITE BLOOD COUNT 12.2 10^3/uL (4.0-10.5)
[2020-04-23 07:02] LABS: ANION GAP 12 (5-19); BLOOD UREA NITROGEN 16 mg/dL (7-20); CALCIUM 9.3 mg/dL (8.4-10.2); CARBON DIOXIDE 23 mmol/L (22-30); CHLORIDE 105 mmol/L (98-107); GLUCOSE 92 mg/dL (75-110); POTASSIUM 4.3 mmol/L (3.6-5.0)
[2020-04-23] MEDS: CARVEDILOL 12.5 MG TABLET PO SCH (09:13)
[2020-04-23] MEDS: LOSARTAN POTASSIUM 25 MG TABLET PO SCH (09:13)
[2020-04-23] MEDS: ENOXAPARIN SODIUM INJ 40 MG/0.4 ML DISP.SYRIN SUBCUT SCH (09:13)
[2020-04-23] MEDS: ASPIRIN 81 MG TABLET, ENT COATED PO SCH (09:13)
[2020-04-23] MEDS: NICOTINE 21 MG/24 HR PATCH.TD24 TD SCH (09:13)
--- NOTE | 2020-04-23 14:19 | PDOC DISCHARGE SUMMARY ---
Impression - Admit/DC Date/PCP Admission Date/Primary Care Provider: 04/21/20 10:27 BRIAN QUEEN MD Discharge Date: 04/23/20 - Discharge Diagnosis (1) Acute systolic (congestive) heart failure Is this a current diagnosis for this admission?: Yes (2) Hypertension Is this a current diagnosis for this admission?: Yes (3) Left bundle branch block Is this a current diagnosis for this admission?: Yes (4) Obesity Is this a current diagnosis for this admission?: Yes (5) Tobacco dependence Is this a current diagnosis for this admission?: Yes - Additional Information Resuscitation Status: Full Code Discharge Diet: Cardiac Discharge Activity: Activity As Tolerated, Balance Activity w/Rest, Weigh Daily Referrals: [facility] [Provider Group] - 05/02/20 8:45 am (with Butch Pereira) Prescriptions: Carvedilol [Coreg 12.5 mg Tablet] 12.5 mg PO Q12 #60 tablet Losartan Potassium [Cozaar 25 mg Tablet] 25 mg PO DAILY #30 tablet Furosemide [Lasix 40 mg Tablet] 40 mg PO QAM #30 tablet Home Medications: Albuterol Sulfate [Ventolin Hfa 8 gm Mdi] 2 puff IH Q4HP PRN 04/21/20 Diphenhydramine HCl [Benadryl 25 mg Capsule] 25 mg PO HSP PRN 04/21/20 Aspirin [Ecotrin 81 mg EC Tablet] 81 mg PO DAILY tabec 04/23/20 Carvedilol [Coreg 12.5 mg Tablet] 12.5 mg PO Q12 #60 tablet 04/23/20 Furosemide [Lasix 40 mg Tablet] 40 mg PO QAM #30 tablet 04/23/20 Losartan Potassium [Cozaar 25 mg Tablet] 25 mg PO DAILY #30 tablet 04/23/20 Nicotine [Nicoderm 21 mg/24 Hr Transderm Patch] 1 each TD DAILY patch.td24 04/23/20 History of Present Illiness History of Present Illness: SUNI KENNEDY is a 35 year old female with a past medical history significant for hypertension, asthma, LBBB, obesity, and tobacco dependence with continuous use who presented to the emergency department today with a complaint of progressively worsening dyspnea over the last 2 weeks. Patient reports that she is now unable to walk more than 15 to 20 feet without becoming short of breath and needing to rest to recover. She also reports significant paroxysmal nocturnal dyspnea; unable to sleep lying flat and is typically sitting up in the chair in order to rest. She also notes that she believes that her asthma symptoms have become increasingly uncontrolled with rescue inhaler use 2-3 times daily over the last few months. She also admits that she has been treated for pneumonia twice in the last year. Evaluation in the emergency department revealed hypertension, Tachypnea, hypoxia, mild leukocytosis (WBC 11.3) mildly elevated D-dimer (0.53), and chemistry notable for a proBNP of 2370. Troponin negative. Influenza negative. COVID-19 testing pending. Chest x-ray revealed enlarged cardiac silhouette but negative for acute findings. Chest CTA was consistent with mild changes of CHF; negative for pulmonary embolus. EKG revealed left bundle branch block which has been present since February 2019. She was initially provided IV fluids but then provided furosemide. She is now referred to the hospitalist service for admission management of stay complaints and findings. Hospital Course Hospital Course: Benign hospital course. Patient responded very well to diuretics as well as beta-blockade. She was also started on angiotensin receptor marcellus. Appears to be euvolemic. Please also see cardiology note. The patient will be following up with Dr. Haynes. Statin therapy should be added and he will likely make modifications in her antihypertensive regimen to maximize pharmacologic therapy for her heart failure as her ejection fraction was less than 30%. Physical Exam Vital Signs: Temp Pulse Resp BP Pulse Ox 97.5 F 80 12 90/60 L 100 04/23/20 10:00 04/23/20 07:43 04/23/20 07:43 04/23/20 07:43 04/23/20 07:43 Intake & Output 04/22/20 04/23/20 04/24/20 06:59 06:59 06:59 Intake Total 900 1171 120 Output Total 3528 347 1380 Balance -1075 371 980 Weight 98.9 kg 98.9 kg 98.9 kg General appearance: PRESENT: no acute distress, cooperative, well-developed Head exam: PRESENT: atraumatic, normocephalic Respiratory exam: PRESENT: clear to auscultation keysha Cardiovascular exam: PRESENT: RRR, +S1, +S2. ABSENT: bradycardia, diastolic murmur, irregular rhythm, systolic murmur, tachycardia GI/Abdominal exam: PRESENT: normal bowel sounds, soft. ABSENT: distended, guarding, tenderness Neurological exam: PRESENT: alert, awake, oriented to person, oriented to place, oriented to time, oriented to situation, CN II-XII grossly intact. ABSENT: altered Psychiatric exam: PRESENT: appropriate affect. ABSENT: agitated, anxious Focused psych exam: ABSENT: delusional, paranoid, restlessness Skin exam: PRESENT: dry, normal color, warm. ABSENT: rash Results Laboratory Results: WBC 12.2 10^3/uL (4.0-10.5) H 04/23/20 06:17 RBC 4.79 10^6/uL (3.72-5.28) 04/23/20 06:17 Hgb 13.4 g/dL (12.0-15.5) 04/23/20 06:17 Hct 41.0 % (36.0-47.0) 04/23/20 06:17 MCV 86 fl (80-97) 04/23/20 06:17 MCH 28.0 pg (27.0-33.4) 04/23/20 06:17 MCHC 32.7 g/dL (32.0-36.0) 04/23/20 06:17 RDW 14.7 % (11.5-14.0) H 04/23/20 06:17 Plt Count 375 10^3/uL (150-450) 04/23/20 06:17 Lymph % (Auto) 20.6 % (13-45) 04/21/20 00:25 Banner % (Auto) 4.3 % (3-13) 04/21/20 00:25 Eos % (Auto) 1.0 % (0-6) 04/21/20 00:25 Baso % (Auto) 0.4 % (0-2) 04/21/20 00:25 Absolute Neuts (auto) 8.3 10^3/uL (1.7-8.2) H 04/21/20 00:25 Absolute Lymphs (auto) 2.3 10^3/uL (0.5-4.7) 04/21/20 00:25 Absolute Monos (auto) 0.5 10^3/uL (0.1-1.4) 04/21/20 00:25 Absolute Eos (auto) 0.1 10^3/uL (0.0-0.6) 04/21/20 00:25 Absolute Basos (auto) 0.0 10^3/uL (0.0-0.2) 04/21/20 00:25 Seg Neutrophils % 73.7 % (42-78) 04/21/20 00:25 PT 14.7 SEC (11.4-15.4) 04/21/20 00:25 INR 1.13 04/21/20 00:25 APTT 28.2 SEC (23.5-35.8) 04/21/20 00:25 D-Dimer 0.53 ug/mL (0.00-0.50) H 04/21/20 00:25 Sodium 139.5 mmol/L (137-145) 04/23/20 06:17 Potassium 4.3 mmol/L (3.6-5.0) 04/23/20 06:17 Chloride 105 mmol/L (98-107) 04/23/20 06:17 Carbon Dioxide 23 mmol/L (22-30) 04/23/20 06:17 Anion Gap 12 (5-19) 04/23/20 06:17 BUN 16 mg/dL (7-20) 04/23/20 06:17 Creatinine 0.81 mg/dL (0.52-1.25) 04/23/20 06:17 Est GFR ( Amer) > 60 (>60) 04/23/20 06:17 Est GFR (MDRD) Non-Af > 60 (>60) 04/23/20 06:17 Glucose 92 mg/dL (75-110) 04/23/20 06:17 Hemoglobin A1c % 4.5 % (4.7-6.0) L 04/22/20 06:14 Calcium 9.3 mg/dL (8.4-10.2) 04/23/20 06:17 Magnesium 2.3 mg/dL (1.6-2.3) 04/21/20 00:25 Total Bilirubin 0.6 mg/dL (0.2-1.3) 04/21/20 00:25 Direct Bilirubin 0.3 mg/dL (0.0-0.4) 04/21/20 00:25 Neonat Total Bilirubin Not Reportable 04/21/20 00:25 Neonat Direct Bilirubin Not Reportable 04/21/20 00:25 Neonat Indirect Bili Not Reportable 04/21/20 00:25 AST 37 U/L (14-36) H 04/21/20 00:25 ALT 37 U/L (<35) H 04/21/20 00:25 Alkaline Phosphatase 70 U/L (38-126) 04/21/20 00:25 Troponin I 0.014 ng/mL 04/22/20 06:14 NT-Pro-B Natriuret Pep 2370 pg/mL (<125) H 04/21/20 00:25 Total Protein 7.3 g/dL (6.3-8.2) 04/21/20 00:25 Albumin 4.5 g/dL (3.5-5.0) 04/21/20 00:25 Triglycerides 81 mg/dL (<150) 04/22/20 06:14 Cholesterol 143.31 mg/dL (0-200) 04/22/20 06:14 LDL Cholesterol Direct 111 mg/dL (<100) H 04/22/20 06:14 VLDL Cholesterol 16.0 mg/dL (10-31) 04/22/20 06:14 HDL Cholesterol 26 mg/dL (>40) L 04/22/20 06:14 TSH 6.02 uIU/mL (0.47-4.68) H 04/21/20 00:25 Free T4 1.31 ng/dL (0.78-2.19) 04/21/20 00:25 Free T3 pg/mL 4.35 pg/mL (2.77-5.27) 04/21/20 00:25 Serum HCG, Qual NEGATIVE (NEGATIVE) 04/21/20 00:25 COVID-19 Source See comment 04/21/20 01:55 COVID-19 (ISAAC) Not Detected (Not Detect) 04/21/20 01:55 Influenza A (Rapid) NEGATIVE (NEGATIVE) 04/21/20 10:37 Influenza B (Rapid) NEGATIVE (NEGATIVE) 04/21/20 10:37 04/21/20 04/21/20 04/21/20 00:25 00:25 19:40 Troponin I 0.020 0.013 NT-Pro-B Natriuret Pep 2370 H 04/22/20 06:14 Troponin I 0.014 NT-Pro-B Natriuret Pep Impressions: Chest X-Ray 04/20/20 21:44 IMPRESSION: There are no acute lung parenchymal findings. Persistent enlargement of the cardiac silhouette. Chest/Abdomen CTA 04/21/20 02:14 IMPRESSION: 1. Findings most consistent with very mild changes of CHF. 2. No evidence of pulmonary embolus. Plan Health Concerns: Severe systolic heart failure at 35 years old Plan of Treatment: Continue current medications. Will need additional work-up including cardiac catheterization, addition of statin therapy and possibly Entresto added after losartan discontinued. Goals: Maximize therapy for heart failure and identify cause of reduced ejection fraction. Lifestyle modification to reduce risk factors. Time Spent: Greater than 30 Minutes Stroke Is this a Stroke Patient?: No Acute Heart Failure Is this a Heart Failure Patient?: Yes Documentation of LVEF assessment?: Yes LVEF: LVEF Less Than or Equal to 35% Anticoagulant Therapy: N/A Discharged on Evidence-Based Beta Blockers: Yes Discharged on ARNI?: No-Document Contraindications Reason(s) not discharged on ARNI: New onset heart failure Discharged on ARB?: Yes Discharged on ACEI?: N/A Discharged on ARB For LVEF <35%, discharged on Aldosterone Antagonist?: No-document contraincations Reason(s) not discharged on Aldosterone Antagonist: Other Aldosterone Antagonist Reason - Other: New onset heart failure. Additional medication changes as outpatient Follow-up Appointment scheduled within 7 days?: Yes
[2020-04-23 14:26] VITALS: BP 99/49
--- NOTE | 2020-04-23 16:59 | PDOC PROGRESS REPORT ---
Subjective Progress Note for:: 04/23/20 Subjective:: Feels much better. She does not report any dyspnea or chest pain or orthopnea. Would like to go home. Reason For Visit: HEART FAILURE Physical Exam Vital Signs: Temp Pulse Resp BP Pulse Ox 98 F 91 16 99/49 L 98 04/23/20 14:51 04/23/20 14:51 04/23/20 14:51 04/23/20 14:51 04/23/20 14:51 Intake & Output 04/22/20 04/23/20 04/24/20 06:59 06:59 06:59 Intake Total 900 1171 320 Output Total 9379 255 5294 Balance -1075 371 -780 Weight 98.9 kg 98.9 kg 98.9 kg General appearance: PRESENT: no acute distress, cooperative, well-developed, well-nourished Head exam: PRESENT: atraumatic, normocephalic Eye exam: PRESENT: conjunctiva pink, EOMI Mouth exam: PRESENT: moist Respiratory exam: PRESENT: symmetrical, unlabored Cardiovascular exam: PRESENT: RRR, +S1, +S2 Pulses: PRESENT: normal radial pulses GI/Abdominal exam: PRESENT: soft Rectal exam: PRESENT: deferred Neurological exam: PRESENT: alert, awake, oriented to person, oriented to place, oriented to time, oriented to situation Psychiatric exam: PRESENT: appropriate affect Skin exam: PRESENT: dry, intact, normal color Results Laboratory Results: 04/23/20 06:17 04/23/20 06:17 04/23/20 04/23/20 06:17 06:17 WBC 12.2 H RBC 4.79 Hgb 13.4 Hct 41.0 MCV 86 MCH 28.0 MCHC 32.7 RDW 14.7 H Plt Count 375 Sodium 139.5 Potassium 4.3 Chloride 105 Carbon Dioxide 23 Anion Gap 12 BUN 16 Creatinine 0.81 Est GFR ( Amer) > 60 Glucose 92 Calcium 9.3 04/21/20 04/21/20 04/21/20 00:25 00:25 19:40 Troponin I 0.020 0.013 NT-Pro-B Natriuret Pep 2370 H 04/22/20 06:14 Troponin I 0.014 NT-Pro-B Natriuret Pep EKG Comments: Transthoracic echocardiogram 04/22/2020. Left ventricular ejection fraction is moderately to severely reduced and is estimated at 20 to 25% RV systolic function is mildly reduced There is mild to moderate mitral regurgitation and moderate tricuspid regurgitation There is mild to moderate pulmonary hypertension There is minimal pericardial effusion. Twelve-lead EKG 04/22/2020 Sinus tachycardia, occasional abnormality, left bundle branch block, ventricular rate is 140 bpm, independently reviewed by me. Impressions: Chest X-Ray 04/20/20 21:44 IMPRESSION: There are no acute lung parenchymal findings. Persistent enlargement of the cardiac silhouette. Chest/Abdomen CTA 04/21/20 02:14 IMPRESSION: 1. Findings most consistent with very mild changes of CHF. 2. No evidence of pulmonary embolus. Assessment & Plan - Diagnosis (1) Hypertension Is this a current diagnosis for this admission?: Yes Plan: We will have to continue measures to ensure adequate control of blood pressure. Salt avoidance is recommended Continue medications for heart failure which should control blood pressure also. (2) New onset of congestive heart failure Is this a current diagnosis for this admission?: Yes Plan: New diagnosis of dilated cardiomyopathy. Etiology has to be established. Patient is relatively young but there is risk factors for coronary artery disease include probably undiagnosed systemic hypertension as well as nicotine dependence. Patient has left bundle branch block on EKG. Continue guideline directed management. Continue maintenance diuretic Continue CANDACE inhibitor and beta-marcellus at current doses. We will uptitrate as outpatient. (3) Tobacco dependence Is this a current diagnosis for this admission?: Yes Plan: I again counseled the patient aggressively regarding complete cessation of nicotine use. Detrimental effects on cardiovascular and overall health health were discussed. Total time spent on this topic was approximately 6 minutes. (4) Left bundle branch block Is this a current diagnosis for this admission?: Yes Plan: Manifest conduction disease probably concurrent with structural heart disease and dilated cardiomyopathy - Notes Notes: Patient is nearly euvolemic. Can probably be discharged today with plans for outpatient follow-up. I reviewed medication strategy with the patient Given new finding of dilated cardiomyopathy patient will require ischemic evaluation. Given risk factors for coronary disease cardiac evaluation is preferable. We will arrange for this as an outpatient.
== END 2020-04-23 16:11 | disposition home or self-care (01) ==
LOC: ER 21:35 → EH 04-21 10:27 → 3N 04-21 14:38 → 3W 04-22 16:20 → 4N 04-23 02:52
PROVIDERS: ADMIT Internal Medicine; ATTEND Hospitalist
DX: I11.0 Hypertensive heart disease with heart failure (principal); I50.21 Acute systolic (congestive) heart failure; I44.7 Left bundle-branch block, unspecified; J45.909 Unspecified asthma, uncomplicated; F17.210 Nicotine dependence, cigarettes, uncomplicated; E66.09 Other obesity due to excess calories; Z68.33 Body mass index [BMI] 33.0-33.9, adult; Z20.828 Contact with and (suspected) exposure to other viral communicable diseases; Z79.82 Long term (current) use of aspirin; R09.02 Hypoxemia; R00.0 Tachycardia, unspecified; Z87.01 Personal history of pneumonia (recurrent); R05 Cough; R53.83 Other fatigue; I42.0 Dilated cardiomyopathy; D72.829 Elevated white blood cell count, unspecified; Z82.49 Family history of ischemic heart disease and other diseases of the circulatory system; Z82.5 Family history of asthma and other chronic lower respiratory diseases
CPT/HCPCS: 93005 ×2; 99285; 96361; 96374; 96375; 36415 ×3; 84439; 83735; 84443; 84703; 85025; 85027 ×2; 85610; 85730; 87635; 80048 ×2; 80053; 84484 ×2; 84481; 83036; 85379; 80061; 87804; 83880; 93306; 71046; 71275; 93010 ×2; G0378 ×3; J1940 ×4; J1885; J1650 ×3; J7512; J3490 ×3; J7030; C9803

== ENCOUNTER 2020-05-05 18:33 | Emergency (ER) | payer MEDICAID ==
--- NOTE | 2020-05-05 18:54 | ER Document Report ---
ED Medical Screen (RME) - General Stated Complaint: CHEST PAIN Time Seen by Provider: 05/05/20 18:47 Primary Care Provider: BRIAN QUEEN MD [Primary Care Provider] - Follow up as needed Mode of Arrival: Ambulatory Information source: Patient Notes: 35-year-old female patient recently diagnosed with congestive heart failure and recently discharged from this hospital presenting to the emergency department chief complaint of chest pain. Patient reports today she started having a heaviness to her chest. She states the pain has come and gone. There are no associated symptoms. She is very worried due to her most recent diagnosis. Patient calm, cooperative, answering all questions appropriately. Lung sounds clear and equal bilaterally. I have greeted and performed a rapid initial assessment of this patient. A comprehensive ED assessment and evaluation of the patient, analysis of test results and completion of the medical decision making process will be conducted by additional ED providers. I have specifically instructed the patient or family members with the patient to immediately return to any nursing staff should anything change in the patient's condition or with their chief complaint. TRAVEL OUTSIDE OF THE [place] IN LAST 30 DAYS: No - Related Data Allergies/Adverse Reactions: latex Allergy (Verified 04/21/20 00:19) No Known Drug Allergies Allergy (Verified 04/21/20 00:19) shellfish derived Allergy (Verified 04/21/20 00:19) Past Medical History - Past Medical History Cardiac Medical History: Reports: Hx Hypertension Denies: Hx Congestive Heart Failure, Hx Coronary Artery Disease, Hx Heart Attack, Hx Hypercholesterolemia Pulmonary Medical History: Reports: Hx Asthma, Hx Pneumonia Denies: Hx COPD Renal/ Medical History: Denies: Hx Peritoneal Dialysis Musculoskeltal Medical History: Reports Hx Arthritis, Reports Hx Musculoskeletal Deformity Psychiatric Medical History: Denies: Hx Depression Past Surgical History: Reports: Hx Section, Hx Tubal Ligation - Immunizations Hx Diphtheria, Pertussis, Tetanus Vaccination: No Physical Exam - Vital signs Vitals: Temp Pulse Resp BP Pulse Ox 98.7 F 72 20 110/63 100 05/05/20 18:46 05/05/20 18:46 05/05/20 18:46 05/05/20 18:46 05/05/20 18:46 Course - Vital Signs Vital signs: Temp Pulse Resp BP Pulse Ox 98.7 F 72 20 110/63 100 05/05/20 18:46 05/05/20 18:46 05/05/20 18:46 05/05/20 18:46 05/05/20 18:46 Doctor's Discharge - Discharge Referrals: BRIAN QUEEN MD [Primary Care Provider] - Follow up as needed
[2020-05-05 19:19] LABS: ABSOLUTE EOSINOPHILS # (AUTO) 0.2 10^3/uL (0.0-0.6); ABSOLUTE LYMPHOCYTES (AUTO) 1.9 10^3/uL (0.5-4.7); ABSOLUTE MONOCYTES (AUTO) 0.7 10^3/uL (0.1-1.4); ABSOLUTE NEUT (AUTO) 6.2 10^3/uL (1.7-8.2); BASOPHILS % (AUTO) 0.4 % (0-2); HEMATOCRIT 39.9 % (36.0-47.0); HEMOGLOBIN 13.3 g/dL (12.0-15.5); LYMPHOCYTES % (AUTO) 20.9 % (13-45); MEAN CORPUSCULAR HEMOGLOBIN 28.4 pg (27.0-33.4); MEAN CORPUSCULAR HGB CONC 33.2 g/dL (32.0-36.0); MEAN CORPUSCULAR VOLUME 85 fl (80-97); MONOCYTES % (AUTO) 7.5 % (3-13); PLATELET COUNT 284 10^3/uL (150-450); RED BLOOD COUNT 4.67 10^6/uL (3.72-5.28); RED CELL DISTRIBUTION WIDTH 14.9 % (11.5-14.0); SEGMENTED NEUTROPHILS % (AUTO) 69.2 % (42-78); TOTAL CELLS COUNTED % (AUTO) 100 %
--- NOTE | 2020-05-05 19:40 | RADIOLOGY REPORT (SQ) ---
EXAM DESCRIPTION: CHEST SINGLE VIEW IMAGES COMPLETED DATE/TIME: 05/05/2020 7:22 pm REASON FOR STUDY: chest pain COMPARISON: Chest x-ray 04/20/2020, 12/03/2019. EXAM PARAMETERS: NUMBER OF VIEWS: One view. TECHNIQUE: Single frontal radiographic view of the chest acquired. RADIATION DOSE: NA LIMITATIONS: None. FINDINGS: LUNGS AND PLEURA: No consolidation, pneumothorax or pleural effusion. MEDIASTINUM AND HILAR STRUCTURES: Contour normal. HEART AND VASCULAR STRUCTURES: The heart remains enlarged. No overt vascular congestion. BONES: No acute findings. HARDWARE: None in the chest. IMPRESSION: Cardiomegaly. Otherwise, no acute radiographic finding in the chest. TECHNICAL DOCUMENTATION: JOB ID: [id number] [employer]- All Rights Reserved Reading location - IP/workstation name: [email or web address]
[2020-05-05 19:41] LABS: ALBUMIN 4.2 g/dL (3.5-5.0); ALKALINE PHOSPHATASE 54 U/L (38-126); ANION GAP 8 (5-19); ASPARTATE AMINO TRANSFERASE 27 U/L (14-36); BILIRUBIN,DIRECT 0.1 mg/dL (0.0-0.4); BILIRUBIN,TOTAL 0.4 mg/dL (0.2-1.3); BLOOD UREA NITROGEN 16 mg/dL (7-20); CALCIUM 9.5 mg/dL (8.4-10.2); CARBON DIOXIDE 28 mmol/L (22-30); CHLORIDE 101 mmol/L (98-107); GLUCOSE 94 mg/dL (75-110); POTASSIUM 4.3 mmol/L (3.6-5.0); TOTAL PROTEIN 7.1 g/dL (6.3-8.2)
[2020-05-05 19:53] LABS: NT PRO BNP 452 pg/mL (<125)
[2020-05-05 19:54] LABS: TROPONIN I < 0.012 ng/mL
--- NOTE | 2020-05-05 20:36 | ER Document Report ---
Entered by ANGELA GARIBAY SCRIBE 05/05/202011 Acting as scribe for:KIRSTEN VELAZQUEZ, DO ED General - General Chief Complaint: Chest Pain Stated Complaint: CHEST PAIN Time Seen by Provider: 05/05/20 18:47 Primary Care Provider: BRIAN QUEEN MD [Primary Care Provider] - Follow up as needed Mode of Arrival: Ambulatory Information source: Patient Notes: This 35 year old female patient presents to the emergency department today with complaints of chest pain this evening around 6:00 PM described as "squeezing". Patient was recently diagnosed with CHF here on 04/21 and she is scheduled to have a cardiac catheterization at the end of this week. Patient mentions that when she noticed the pain she also noticed a "tingle in her throat". She denies any fevers, cough, urinary symptoms, or concerns for COVID-19. TRAVEL OUTSIDE OF THE [place] IN LAST 30 DAYS: No - Related Data Allergies/Adverse Reactions: latex Allergy (Verified 04/21/20 00:19) No Known Drug Allergies Allergy (Verified 04/21/20 00:19) shellfish derived Allergy (Verified 04/21/20 00:19) Home Medications: carvedilol, losartan, furosemide Past Medical History - General Information source: Patient - Social History Smoking Status: Former Smoker Cigarette use (# per day): No Frequency of alcohol use: None Drug Abuse: None Lives with: Family Family History: Reviewed & Not Pertinent, Arthritis, CAD, COPD, CVA, Hyperlipidemia, Hypertension, Malignancy - Past Medical History Cardiac Medical History: Reports: Hx Congestive Heart Failure, Hx Hypertension Pulmonary Medical History: Reports: Hx Asthma, Hx Pneumonia Musculoskeletal Medical History: Reports Hx Arthritis, Reports Hx Musculoskeletal Deformity Past Surgical History: Reports: Hx Section, Hx Tubal Ligation - Immunizations Hx Diphtheria, Pertussis, Tetanus Vaccination: No Review of Systems - Review of Systems Constitutional: denies: Fever EENT: See HPI, Other - "tingle in the throat" Cardiovascular: See HPI, Chest pain Respiratory: denies: Cough Gastrointestinal: No symptoms reported Genitourinary: denies: Dysuria Female Genitourinary: No symptoms reported Musculoskeletal: No symptoms reported Skin: No symptoms reported Hematologic/Lymphatic: No symptoms reported Neurological/Psychological: No symptoms reported -: Yes All other systems reviewed and negative Physical Exam - Vital signs Vitals: Temp Pulse Resp BP Pulse Ox 98.7 F 72 20 110/63 100 05/05/20 18:46 05/05/20 18:46 05/05/20 18:46 05/05/20 18:46 05/05/20 18:46 - Notes Notes: Physical Exam: General: Alert, appears well. HEENT: Normocephalic. Atraumatic. PERRL. Extraocular movements intact. Oropharynx clear. Neck: Supple. Non-tender. Respiratory: No respiratory distress. Clear and equal breath sounds bilaterally. Cardiovascular: Regular rate and rhythm. Abdominal: Normal Inspection. Non-tender. No distension. Normal Bowel Sounds. Back: No gross abnormalities. Extremities: Moves all four extremities. Upper extremities: Normal inspection. Normal ROM. Lower extremities: Normal inspection. No edema. Normal ROM. Neurological: Normal cognition. AAOx4. Normal speech. Psychological: Normal affect. Normal Mood. Skin: Warm. Dry. Normal color. Course - Re-evaluation Re-evalutation: 05/05/20 22:54 MDM 35 year old with soreness in chest earlier and a chf diagnosis recently. Cath scheduled later this week - Thursday 05/10. Feels better when I see her. She has stopped smoking. Denies illicit drug use. Feel unlikely PE with sat, resp rate, hr and trop all wnl casper not any significant pe. She had CTA recently and that report was reviewed. She understands return precautions. - Vital Signs Vital signs: Temp Pulse Resp BP Pulse Ox 98.7 F 72 23 H 115/69 99 05/05/20 18:46 05/05/20 18:46 05/05/20 21:50 05/05/20 21:50 05/05/20 21:50 - Laboratory Result Diagrams: 05/05/20 18:58 05/05/20 18:58 Laboratory results interpreted by me: 05/05/20 05/05/20 18:58 18:58 RDW 14.9 H NT-Pro-B Natriuret Pep 452 H - Diagnostic Test Radiology reviewed: Image reviewed, Reports reviewed - EKG Interpretation by Me EKG shows normal: Sinus rhythm Rate: Normal Rhythm: NSR [place]/QRS: LBBB When compared to previous EKG there are: No significant change - NSR Nl [place] 82 BPM LBBB Repol Ab similar to last week. Discharge - Discharge Clinical Impression: LBBB (left bundle branch block) Obesity Qualifiers: Obesity type: unspecified obesity type Obesity classification: adult class 1 (BMI 30 - 34.9) Serious obesity comorbidity presence: with serious comorbidity Body mass index: BMI 30.0-30.9 Qualified Code(s): E66.9 - Obesity, unspecified; Z68.30 - Body mass index [BMI]30.0-30.9, adult CHF (congestive heart failure) Qualifiers: Heart failure type: unspecified Heart failure chronicity: unspecified Qualified Code(s): I50.9 - Heart failure, unspecified Condition: Stable Disposition: HOME, SELF-CARE Instructions: Congestive Heart Failure ([facility]), Chest Pain of Unclear Cause ([facility]) Additional Instructions: Continue to not smoke. Keep your follow up for the heart catherization later this week. Rest. Continue your medicine as directed. Return here for chest pain, shortness of breath or other problems or concerns. Referrals: BRIAN QUEEN MD [Primary Care Provider] - 05/06/20 I personally performed the services described in the documentation, reviewed and edited the documentation which was dictated to the scribe in my presence, and it accurately records my words and actions.
[2020-05-06 00:01] VITALS: BP 102/69
--- NOTE | 2020-05-06 05:28 | EKG REPORT ---
SEVERITY:- ABNORMAL ECG - SINUS OR ECTOPIC ATRIAL RHYTHM LEFT ATRIAL ABNORMALITY LEFT BUNDLE BRANCH BLOCK : Confirmed by: Gerald Haynes MD 06-May-2020 05:26:53
== END 2020-05-06 00:01 | disposition home or self-care (01) ==
LOC: ER 18:33
DX: I44.7 Left bundle-branch block, unspecified (principal); I11.0 Hypertensive heart disease with heart failure; I50.9 Heart failure, unspecified; E66.9 Obesity, unspecified; Z68.30 Body mass index [BMI] 30.0-30.9, adult; R07.9 Chest pain, unspecified; R09.89 Other specified symptoms and signs involving the circulatory and respiratory systems; J45.909 Unspecified asthma, uncomplicated; Z79.899 Other long term (current) drug therapy; Z87.891 Personal history of nicotine dependence; Z91.040 Latex allergy status; Z91.013 Allergy to seafood; Z82.49 Family history of ischemic heart disease and other diseases of the circulatory system
CPT/HCPCS: 36415; 71045; 80053; 83880; 84484; 85025; 93005; 93010; 99285

== ENCOUNTER 2020-06-23 19:36 | Emergency (ER) | payer MEDICAID ==
[2020-06-23 19:58] VITALS: BP 137/74
[2020-06-23] MEDS ORDERED: METHOCARBAMOL 500 MG TABLET PO ONE (20:07)
--- NOTE | 2020-06-23 20:13 | ER Document Report ---
ED Neck/Back Problem - General Chief Complaint: neck and back pain Stated Complaint: NECK/BACK PAIN Time Seen by Provider: 06/23/20 20:01 Primary Care Provider: BRIAN QUEEN MD [Primary Care Provider] - Follow up as needed Mode of Arrival: Ambulatory Information source: Patient Notes: 35-year-old female presented to ED for pain to the upper neck bilaterally and upper back. She states it has been hurting for at least a month since she had a heart cath on 05/18/2020. She states she followed up with her primary care doctor and they gave her exercises to do instructions for hot and cold packs and ibuprofen. She states it is not getting any better. She states she plans to call [facility] tomorrow and schedule a follow-up appointment but she has not been able to sleep for a while due to this pain. She states the ibuprofen is not doing her any good. She does have a history of a heart cath, [place], CHF, and high blood pressure. She states she is a former smoker does not drink or do any drugs. We will treat with the Carol call and she has stated she will follow up with primary care tomorrow. She does have full range of motion to her neck. She does not have any tenderness to the vertebral spine just the muscles on both sides. Constitutional: Negative for fever. HENT: Negative for sore throat. Eyes: Negative for visual changes. Cardiovascular: Negative for chest pain. Respiratory: Negative for shortness of breath. Gastrointestinal: Negative for abdominal pain, vomiting or diarrhea. Genitourinary: Negative for dysuria. Musculoskeletal: Pain to paraspinous muscles bilaterally from the neck to the upper back. No vertebral tenderness Skin: Negative for rash. Neurological: Negative for headaches, weakness or numbness. 10 point ROS negative except as marked above and in HPI. PHYSICAL EXAMINATION: GENERAL: Well-appearing, well-nourished and in no acute distress. HEAD: Atraumatic, normocephalic. EYES: Pupils equal round extraocular movements intact, conjunctiva are normal. ENT: Nares patent NECK: Normal range of motion LUNGS: No respiratory distress Musculoskeletal: Normal range of motion patient states is painful to turn her neck but she is able to turn her neck. She does have tenderness to both sides of the spine neck and upper back. NEUROLOGICAL: Normal speech, normal gait. PSYCH: Normal mood, normal affect. SKIN: Warm, Dry, normal turgor, no rashes or lesions noted. TRAVEL OUTSIDE OF THE [place] IN LAST 30 DAYS: No - HPI Patient complains to provider of: Pain, Neck, Upper back Onset: Other - More than a month Onset: Gradual - Since her heart catheterization in May 18 Timing: Still present Quality of pain: Burning Severity: Severe Pain Level: 5 Context: Turning Recent injury: No Associated symptoms: Like prior neck/back pain, Upper back pain. denies: Fever, Incontinence, Motor loss, Numbness/tingling, Radiation to arm, Radiation to chest, Radiation to leg, Sensory loss, Unable to urinate, Lower back pain Exacerbated by: Movement of neck Relieved by: Nothing Similar symptoms previously: Yes Recently seen / treated by doctor: Yes - Related Data Allergies/Adverse Reactions: latex Allergy (Verified 04/21/20 00:19) No Known Drug Allergies Allergy (Verified 04/21/20 00:19) shellfish derived Allergy (Verified 04/21/20 00:19) Past Medical History - General Information source: Patient - Social History Smoking Status: Former Smoker Frequency of alcohol use: None Drug Abuse: None Family History: Reviewed & Not Pertinent, Arthritis, CAD, COPD, CVA, Hyperlipidemia, Hypertension, Malignancy Patient has suicidal ideation: No Patient has homicidal ideation: No - Past Medical History Cardiac Medical History: Reports: Hx Congestive Heart Failure, Hx Heart Attack - She states, Hx Hypertension Pulmonary Medical History: Reports: Hx Asthma, Hx Pneumonia EENT Medical History: Reports: None Neurological Medical History: Reports: None Endocrine Medical History: Reports: None Renal/ Medical History: Reports: None Malignancy Medical History: Reports: None GI Medical History: Reports: None Musculoskeletal Medical History: Reports Hx Arthritis, Reports Hx Musculoskeletal Deformity Skin Medical History: Reports None Psychiatric Medical History: Reports: None Traumatic Medical History: Reports: None Infectious Medical History: Reports: None Past Surgical History: Reports: Hx Cardiac Catheterization, Hx Section, Hx Tubal Ligation - Immunizations Hx Diphtheria, Pertussis, Tetanus Vaccination: No Physical Exam - Vital signs Vitals: Temp Pulse Resp BP Pulse Ox 98.4 F 95 18 137/74 H 100 06/23/20 19:53 06/23/20 19:53 06/23/20 19:53 06/23/20 19:53 12/27/20 19:53 Course - Vital Signs Vital signs: Temp Pulse Resp BP Pulse Ox 98.4 F 95 18 137/74 H 100 06/23/20 19:53 06/23/20 19:53 06/23/20 19:53 06/23/20 19:53 06/23/20 19:53 - Laboratory Results Critical Laboratory Results Reviewed: No Critical Results - Radiology Results Critical Radiology Results Reviewed: No Critical Results Discharge - Discharge Clinical Impression: Neck pain since heart cath, Upper back pain since heart cath Condition: Stable Disposition: HOME, SELF-CARE Additional Instructions: NECK INJURY (CERVICAL STRAIN): You have a neck strain. This is an injury to the muscles and ligaments in the neck. There is no evidence of a fracture of the neck bones. Also, no injury to the spinal cord or nerve roots was detected. Usually, stiffness and pain INCREASE for the first 24-48 hours after the injury. The pain will gradually resolve and the neck will become more mobile. Most patients are back at work or school within a few days. Typically, complete healing takes about two or three weeks. The usual initial treatment is rest and cold packs. A neck collar may be placed to keep the muscles of the neck at rest. Antiinflammatory and muscle relaxing medication are often used to reduce the spasm and irritation. You should call the doctor, or go to the hospital, if you develop numbness or weakness in any extremity, problems with your bladder or bowel, or pain radiating down the arms. MUSCLE STRAIN: You have strained a muscle -- torn the fibers within the muscle. This often occurs with strenuous exertion, or during an injury that suddenly stretches the muscle. The seriousness of a strain varies. Some strains heal within days, others cause problems for months. X-rays cannot show a muscle strain. X-rays are taken only if symptoms suggest that a fracture could be present. The usual treatment of a muscle strain is rest and ice packs. Sometimes, a sling, splint, or crutches may be necessary to rest the muscle. The muscle can be used again once pain subsides. Severe strains require a special exercise and stretching program to prevent permanent stiffness and disability. Your doctor will advise you if this will be necessary. Call the doctor immediately if pain or swelling becomes severe, or if numbness or discoloration develop. USE OF TYLENOL (ACETAMINOPHEN): Acetaminophen may be taken for pain relief or fever control. It's much safer than aspirin, offering a wider range of "safe" dosages. It is safe during . Some brand names are Tylenol, Panadol, Datril, Anacin 3, Tempra, and Liquiprin. Acetaminophen can be repeated every four hours. The following are maximum recommended dosages: WEIGHT Dose Drops Elixir Chewable(80mg) (LBS.) drprs=droppers tsp=teaspoon 6 40 mg 0.4 ml (1/2) 6-11 80 mg 0.8 ml (full) tsp 1 tab 12-16 120 mg 1 1/2 drprs 3/4 tsp 1 1/2 tabs 17-23 160 mg 2 drprs 1 tsp 2 tabs 24-30 240 mg 3 drprs 1 1/2 tsp 3 tabs 30-35 320 mg 2 tsp 4 tabs 36-41 360 mg 2 1/4 tsp 4 1/2 tabs 42-47 400 mg 2 1/2 tsp 5 tabs 48-53 480 mg 3 tsp 6 tabs 54-59 520 mg 3 1/4 tsp 6 1/2 tabs 60-64 560 mg 3 1/2 tsp 7 tabs 65-70 600 mg 3 3/4 tsp 7 1/2 tabs 71-76 640 mg 4 tsp 8 tabs 77-82 720 mg 4 1/2 tsp 9 tabs 83-88 800 mg 5 tsp 10 tabs >89 pounds or adults 650 mg to 900 mg Acetaminophen can be repeated every four hours. Maximum dose not to exceed 4000 mg a day. These maximum recommended dosages are slightly higher than the dosages written on the product container, but these dosages are very safe and below the toxic dosage for acetaminophen. ICE PACKS: Apply ice packs frequently against the painful area. Many different schedules are recommended, such as "20 minutes on, 20 minutes off" or "one hour ice, two hours rest." If you need to work, you may need to go longer between ice treatments. You should plan to have the area ice packed AT LEAST one fourth of the time. The ice should be applied over the wrap, tape, or splint, or over a layer of cloth -- not directly against the skin. Some ice bags have a built-in cloth and can be put directly on the skin. WARM PACKS: After approximately two days, apply gentle heat (such as a heating pad or hot water bottle) for about 20 to 30 minutes about every two hours -- at least four times daily. Warmth and elevation will help you make a more rapid recovery, and will ease the pain considerably. Do not use HOT heat, and never apply heat for longer than 30 minutes. The continuous heat can invisibly damage skin and muscles -- even when no burn is seen on the surface. Damaged muscles can make you MORE sore. MUSCLE RELAXERS: Muscle relaxing medications are usually prescribed for acute muscle spasm or injury to the neck and back. They are often combined with antiinflammatory pain medication for increased relief. You may stop the muscle relaxer when the pain and stiffness have improved. Start the medication again if spasms recur. Muscle relaxers may cause drowsiness, especially with the first dose. Do not operate machinery or drive while under the effects of the medication. Most muscle relaxers last up to 24 hours. Do not combine the medication with alcohol. FOLLOW-UP CARE: If you have been referred to a physician for follow-up care, call the physicians office for an appointment as you were instructed or within the next two days. If you experience worsening or a significant change in your symptoms, notify the physician immediately or return to the Emergency Department at any time for re-evaluation. Forms: Elevated Blood Pressure Referrals: BRIAN QUEEN MD [Primary Care Provider] - Follow up as needed
== END 2020-06-23 20:15 | disposition home or self-care (01) ==
LOC: ER 19:36
DX: M54.2 Cervicalgia (principal); M54.6 Pain in thoracic spine; I11.0 Hypertensive heart disease with heart failure; I50.9 Heart failure, unspecified; Z91.040 Latex allergy status; Z91.013 Allergy to seafood; I25.2 Old myocardial infarction
CPT/HCPCS: 99283; J3490